=== PATIENT | female | born 1960 | race Caucasian/White ===

== ENCOUNTER → 2016-10-13 | Outpatient (CLI) | payer MEDICARE, BC | LOC: LAB.O 14:54 | PROVIDERS: ATTEND Nurse Practitioner Family | DX: D64.9 Anemia, unspecified (principal); E63.9 Nutritional deficiency, unspecified; E03.9 Hypothyroidism, unspecified; E21.5 Disorder of parathyroid gland, unspecified ==

== ENCOUNTER 2017-01-03 14:01 | Emergency (ER) | payer MEDICARE, BC ==
[2017-01-03 14:26] VITALS: TEMP 98.7
[2017-01-03] MEDS ORDERED: KETOROLAC TROMETHAMINE INJ 30 MG/ML VIAL IV ONE (14:39)
[2017-01-03] MEDS ORDERED: ONDANSETRON INJ 4 MG/2 ML VIAL IV ONE (14:39)
[2017-01-03] MEDS ORDERED: SODIUM CHLORIDE 0.9% 1000ML 1,000 ML IVS ONE (14:39)
--- NOTE | 2017-01-03 14:42 | ED.PDOC ---
History of Present Illness - General Chief Complaint: Problem Stated Complaint: right flank pain, difficulty urinating Time Seen by Provider: 01/03/17 14:15 Source: patient, RN notes reviewed, Vital Signs reviewed Exam Limitations: no limitations - History of Present Illness Initial Comments: Patient reports R sided kidney stone that started ~ 1 week ago and has progressively worsened. + R flank and RLQ pain. Feels same as prior kidney stones. + nausea, no fever/chills Timing/Duration: week - 1 Quality: severe, aching, stabbing Onset Location: right flank Radiation: RLQ Activites at Onset: none Prior abdominal problems: similar symptoms Sexual intercourse history: single partner Improving Factors: nothing Worsening Factors: nothing Associated Symptoms: abdominal pain, nausea/vomiting Allergies/Adverse Reactions: Allergies NO KNOWN ALLERGY Allergy (Verified 01/03/17 14:26) Home Medications: Ambulatory Orders Acetaminophen W/ Codeine [Tylenol/Codeine #4] 1 tab PO BID 12/21/13 Febuxostat [Uloric] 40 mg PO AM 12/21/13 Metoclopramide HCl 10 mg PO PRN PRN 12/21/13 Metoprolol Succinate [Metoprolol Succinate ER] 50 mg PO HS 12/21/13 Omeprazole 40 mg PO HS 12/21/13 Sertraline HCl [Zoloft] 100 mg PO AM 12/21/13 Sucralfate Tab [Carafate] 1 gm PO PRN PRN 12/21/13 fentaNYL PATCH 25 MCG/HR [Duragesic] 25 mcg TD PRN 12/21/13 tiZANidine [Zanaflex] 4 mg PO HS 12/21/13 Cyclobenzaprine HCl [Flexeril] 10 mg PO Q6HR PRN #20 tab 02/23/15 Review of Systems - Review of Systems Constitutional: States: no symptoms reported. Denies: chills, fever, malaise Respiratory: States: no symptoms reported Cardiology: States: no symptoms reported Gastrointestinal/Abdominal: States: see HPI, abdominal pain, nausea. Denies: vomiting Genitourinary: States: see HPI, pain Musculoskeletal: States: back pain - Right flank Skin: States: no symptoms reported Neurological: States: no symptoms reported Endocrine: States: no symptoms reported Hematologic/Lymphatic: States: no symptoms reported Past Medical History (General) - Patient Medical History Hx Stroke: No Hx Congestive Heart Failure: No Hx Pacemaker: - Had diabetes prior to gastric bypass, no longer on med Hx Hypertension: Yes Hx Diabetes: No Hx MRSA: Yes MRSA Source:: Blood Surgical History: cholecystectomy - Vaccination History Hx Influenza Vaccination: Yes Hx Pneumococcal Vaccination: Yes - Social History Hx Tobacco Use: Yes Hx Alcohol Use: No Hx Substance Use: No Hx Substance Use Treatment: No Hx Depression: No - Activities of Daily Living Hospice Agency (if applicable):: None - Female History Patient is a Female of Child Bearing Age (10 -59 yrs old): No Patient : No Family Medical History - Family History Father Living Status: Hx Family Hypertension: Yes Hx Family Diabetes: Yes Physical Exam - Physical Exam General Appearance: Agitated, No apparent distress, Ill Appearing, Well Developed, Well Groomed, Well Nourished Eyes, Ears, Nose, Throat Exam: other - Dry mucous membranes Neck: non-tender, full range of motion, supple, normal inspection Cardiovascular/Respiratory: regular rate, rhythm, no M/R/G, no JVD, normal breath sounds, no respiratory distress Gastrointestinal/Abdominal: normal bowel sounds, soft, tenderness - RUQ & RLQ Back Exam: CVA tenderness (R) Extremity: normal range of motion, non-tender, normal inspection Neurologic: no motor/sensory deficits, alert, normal mood/affect, oriented x 3 Skin Exam: normal color, warm/dry Lymphatic: no adenopathy Comments: Vital Signs - 24 hr 01/03/17 14:10 Temperature 98.7 F Pulse Rate [ 74 pulse ox] Respiratory 20 Rate Blood Pressure 127/79 [Left Arm] O2 Sat by Pulse 98 Oximetry Progress - Progress Progress: 01/03/17 16:18 Discussed normal/unchanged results with patient. She is feeling better. Will d/c home. - Results/Orders Results/Orders: Laboratory Tests 01/03/17 01/03/17 14:30 15:25 WBC 6.6 RBC 4.13 L Hgb 11.4 L Hct 35.0 L MCV 84.8 MCH 27.6 MCHC 32.6 L RDW 13.7 Plt Count 244 MPV 8.0 Absolute Neuts (auto) 3.80 Absolute Lymphs (auto) 2.10 Absolute Monos (auto) 0.30 Absolute Eos (auto) 0.30 Absolute Basos (auto) 0.10 Neutrophils % 57.8 Lymphocytes % 32.0 Monocytes % 5.0 Eosinophils % 4.3 Basophils % 0.9 Sodium 138 Potassium 5.3 H Chloride 106 Carbon Dioxide 25 Anion Gap 12.3 BUN 35 H Creatinine 3.18 H BUN/Creatinine Ratio 11.0 Random Glucose 142 H Serum Osmolality 286.1 Calcium 8.9 Total Bilirubin 0.3 AST 21 ALT 10 Alkaline Phosphatase 63 Serum Total Protein 7.3 Albumin 3.7 Globulin 3.6 H Albumin/Globulin Ratio 1.0 L Urine Color Yellow Urine Appearance Cloudy Urine pH 8.5 H Ur Specific [place] 1.020 Urine Protein 100 H Urine Glucose (UA) Negative Urine Ketones Negative Urine Blood Negative Urine Nitrite Negative Urine Bilirubin Negative Urine Urobilinogen 0.2 Ur Leukocyte Esterase Negative Urine RBC 0-1 Urine WBC 0-1 Ur Epithelial Cells 10-20 Amorphous Sediment 1+ Urine Bacteria 0 Elevated BUN/Cr - unchanged from prior. - EKG/XRAY/CT CT Ordered: Yes - Abd/Pelvis: no kidnee stone, nl kidney, o/w nl Departure - Departure Clinical Impression: Renal colic on right side Time of Disposition: 16:19 Disposition: Discharge to Home or Self Care Condition: Good Departure Forms: ED Discharge - Pt. Copy, Patient Portal Self Enrollment Instructions: DI for Kidney Stones Diet: resume usual diet Activity: increase activity as tolerated Home Medications: Ambulatory Orders Acetaminophen W/ Codeine [Tylenol/Codeine #4] 1 tab PO BID 12/21/13 Febuxostat [Uloric] 40 mg PO AM 12/21/13 Metoclopramide HCl 10 mg PO PRN PRN 12/21/13 Metoprolol Succinate [Metoprolol Succinate ER] 50 mg PO HS 12/21/13 Omeprazole 40 mg PO HS 12/21/13 Sertraline HCl [Zoloft] 100 mg PO AM 12/21/13 Sucralfate Tab [Carafate] 1 gm PO PRN PRN 12/21/13 fentaNYL PATCH 25 MCG/HR [Duragesic] 25 mcg TD PRN 12/21/13 tiZANidine [Zanaflex] 4 mg PO HS 12/21/13 Cyclobenzaprine HCl [Flexeril] 10 mg PO Q6HR PRN #20 tab 02/23/15
--- NOTE | 2017-01-03 15:19 | CT ---
EXAM DESCRIPTION: CT Abdomen/Pelvis w/o Contrast CLINICAL HISTORY: R flank pain COMPARISON: 04/22/2015 TECHNIQUE: CT of the abdomen and pelvis was performed without contrast. Multiple axial images and multiplanar reconstructions were generated. FINDINGS: Lung bases: The visualized lung bases are clear. Solid organs: There is no hydronephrosis, hydroureter, or nephrolithiasis. Bilateral renal cortical scarring is present. Cholecystectomy clips are present. The liver, spleen, pancreas, and adrenal glands are unremarkable on this noncontrast exam. Gastrointestinal: Operative changes of the stomach are demonstrated. The small intestine is unremarkable. Scattered colonic diverticulosis is present without CT evidence for diverticulitis. The appendix is normal. No free fluid or free air. Vascular: Moderate calcific plaque in the abdominal aorta and its major branches. Lymph nodes: No pathologically enlarged lymph nodes are present by CT size criteria. Musculoskeletal and soft tissues: No destructive osseous lesions are present. Mild multilevel degenerative changes in the lumbar spine. Urinary bladder and pelvic organs: The urinary bladder is normal. The uterus is surgically absent. IMPRESSION: 1. No obstructive uropathy. No acute abdominal or pelvic noncontrast CT findings. 2. Colonic diverticulosis without CT evidence for diverticulitis. 3. Atherosclerosis. Electronically signed by: Duncan Mock MD 01/03/2017 3:17 PM CDT
[2017-01-03 16:39] VITALS: BP 197/97; O2SAT 94
== END 2017-01-03 16:39 | disposition home or self-care (01) ==
LOC: ER 14:01
DX: N23 Unspecified renal colic (principal); I10 Essential (primary) hypertension; Z87.442 Personal history of urinary calculi; Z79.899 Other long term (current) drug therapy; Z86.14 Personal history of Methicillin resistant Staphylococcus aureus infection; Z98.84 Bariatric surgery status
CPT/HCPCS: 36415; 74176; 80053; 81001; 85025; J1885; J2405; J7030

== ENCOUNTER → 2017-02-18 | Outpatient (CLI) | payer MEDICARE, BC | LOC: LAB.O 10:53 | PROVIDERS: ATTEND Psychiatry & Neurology Neurology | DX: M45.9 Ankylosing spondylitis of unspecified sites in spine (principal); M06.9 Rheumatoid arthritis, unspecified; M32.10 Systemic lupus erythematosus, organ or system involvement unspecified; M71.50 Other bursitis, not elsewhere classified, unspecified site; M31.6 Other giant cell arteritis; R53.83 Other fatigue; M51.16 Intervertebral disc disorders with radiculopathy, lumbar region; M35.3 Polymyalgia rheumatica; G47.9 Sleep disorder, unspecified; E53.8 Deficiency of other specified B group vitamins; E55.9 Vitamin D deficiency, unspecified ==

== ENCOUNTER → 2017-03-14 | Outpatient (CLI) | payer MEDICARE, BC ==
--- NOTE | 2017-03-14 13:52 | MRI ---
EXAM DESCRIPTION: Cervical Spine CLINICAL HISTORY: CERVICAL DISC DISORDER COMPARISON: None Available. TECHNIQUE: MRI of the cervical spine is performed according to our usual protocol. FINDINGS: There is good alignment of the cervical spine. Vertebral body stature is maintained. Craniocervical junction and the cervical spinal cord are unremarkable. C2-3: There is mild left neuroforaminal narrowing from facet and uncovertebral joint hypertrophy. The right neuroforamen and spinal canal are unremarkable. C3-4: Moderate left neuroforaminal narrowing. The right neuroforamen and spinal canal are unremarkable. C4-5: Mild bilateral neuroforaminal narrowing. Focal posterior disc protrusion. The midline diameter of the spinal canal is adequate at 11 mm. There is effacement of the ventral CSF space, but no definitive cord contact. C5-6: Broad-based posterior disc protrusion resulting in subtle cord contact anteriorly. The midline diameter of the spinal canal is narrowed to 9 mm. Bilateral neuroforamen are unremarkable. C6-7: Focal posterior disc protrusion with cord contact. The midline diameter spinal canal is narrowed at 9 mm. Bilateral neuroforamen are likely adequate. C7-T1: Unremarkable. IMPRESSION: 1. Today's exam demonstrates multilevel degenerative change with mild spinal canal narrowing at C5-6 and C6-7. The AP diameter of the spinal canal at these levels is 9 mm. Additionally, at both levels there is subtle cord contact without myelomalacia. Electronically signed by: Duncan Delgado MD 03/14/2017 1:51 PM CDT
--- NOTE | 2017-03-14 13:54 | MRI ---
EXAM DESCRIPTION: Lumbar Spine w/o Contrast CLINICAL HISTORY: RADICULOPATHY LUMBAR REGION COMPARISON: None Available. TECHNIQUE: MRI of the lumbar spine is performed according to our usual protocol with axial and sagittal multi sequence imaging. FINDINGS: Normal alignment of the lumbar spine is noted. There is no acute fracture or destructive osseous lesion. The conus medullaris terminates normally. L1-2: Mild disc desiccation, but no spinal canal or neuroforaminal narrowing. L2-3: Unremarkable. L3-4: Mild facet degeneration. No disc disease. No spinal canal or neuroforaminal narrowing. L4-5: Moderate facet degeneration and ligamentum flavum thickening. There is subtle grade 1 anterior listhesis noted. Ligamentum flavum buckling and a mild circumferential disc bulge noted. The midline diameter spinal canal is adequate at 11 mm. There is mild bilateral neuroforaminal narrowing. L5-S1: Mild facet degeneration bilaterally. No disc pathology. No spinal canal or neuroforaminal narrowing. IMPRESSION: 1. There is mild degenerative change most pronounced at L4-5. At this level there is moderate facet degeneration which has resulted in subtle grade 1 anterior listhesis of L4 and L5. There is only mild bilateral neuroforaminal narrowing at this level. 2. No spinal canal narrowing at any level. Electronically signed by: Duncan Delgado MD 03/14/2017 1:54 PM CDT
== END | disposition home or self-care (01) ==
LOC: MRI 09:45
PROVIDERS: ATTEND Psychiatry & Neurology Neurology
DX: M50.122 Cervical disc disorder at C5-C6 level with radiculopathy (principal); M51.16 Intervertebral disc disorders with radiculopathy, lumbar region

== ENCOUNTER → 2017-03-18 | Outpatient (CLI) | payer MEDICARE, BC | LOC: GMAJ 12:50 | PROVIDERS: ATTEND Family Medicine | DX: E03.9 Hypothyroidism, unspecified (principal); R41.82 Altered mental status, unspecified; D64.9 Anemia, unspecified; F03.90 Unspecified dementia, unspecified severity, without behavioral disturbance, psychotic disturbance, mood disturbance, and anxiety ==

== ENCOUNTER → 2017-04-14 | Outpatient (CLI) | payer MEDICARE, BC | END | disposition home or self-care (01) | LOC: GMAJ 14:08 | PROVIDERS: ATTEND Family Medicine | DX: N18.4 Chronic kidney disease, stage 4 (severe) (principal) ==

== ENCOUNTER 2017-04-23 15:03 | Inpatient (IN) | payer MEDICARE, BC ==
--- NOTE | 2017-04-23 15:15 | ED.PDOC ---
History of Present Illness - General Chief Complaint: Unresponsive Stated Complaint: Altered mental status Time Seen by Provider: 04/23/17 15:14 Source: RN notes reviewed, EMS notes reviewed - History of Present Illness Initial Comments: Fina Gillespie 56 y/o female brought by ems after she was found unresponsive while seating on the side of the pool today according to her son.The son stated that he called his mom to get her things ready going home but she was not answering and her son tried to arouse her and she had been talking nonsense and while she was about to be carried by the son she was found to be limp and weak unable to balance herself .Initially son told her that she needs ambulance to go to hospital but declined but she was still feeling weak she decided to be brought to er by ambulance. On her arrival at the [facility] er she was talking to EMS personnel,remembers incident no dysarthria,no focal neurologic deficit.She has history of chronic renal failure,HTN,chronic back pain.She is more responsive on arrival at [facility]-er. Timing/Duration: 1-3 hours Severity: moderate Improving Factors: nothing Worsening Factors: nothing Associated Symptoms: denies symptoms Allergies/Adverse Reactions: Allergies NO KNOWN ALLERGY Allergy (Verified 01/03/17 14:26) Home Medications: Ambulatory Orders Acetaminophen W/ Codeine [Tylenol/Codeine #4] 1 tab PO BID 12/21/13 Febuxostat [Uloric] 40 mg PO AM 12/21/13 Metoclopramide HCl 10 mg PO PRN PRN 12/21/13 Metoprolol Succinate [Metoprolol Succinate ER] 50 mg PO HS 12/21/13 Omeprazole 40 mg PO HS 12/21/13 Sertraline HCl [Zoloft] 100 mg PO AM 12/21/13 Sucralfate Tab [Carafate] 1 gm PO PRN PRN 12/21/13 fentaNYL PATCH 25 MCG/HR [Duragesic] 25 mcg TD PRN 12/21/13 tiZANidine [Zanaflex] 4 mg PO HS 12/21/13 Cyclobenzaprine HCl [Flexeril] 10 mg PO Q6HR PRN #20 tab 02/23/15 Review of Systems - Review of Systems Constitutional: States: no symptoms reported, malaise EENTM: States: no symptoms reported Respiratory: States: no symptoms reported Cardiology: States: no symptoms reported Gastrointestinal/Abdominal: States: no symptoms reported Genitourinary: States: other - chronic kidney disease -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 Finn Musculoskeletal: States: back pain - chronic Neurological: States: no symptoms reported Endocrine: States: no symptoms reported Hematologic/Lymphatic: States: anemia - from ckd Past Medical History (General) - Patient Medical History Hx Stroke: No Hx Congestive Heart Failure: No Hx Pacemaker: - Had diabetes prior to gastric bypass, no longer on med Hx Hypertension: Yes Hx Diabetes: No Hx Renal Disease: Yes - chronic kidney disease Hx MRSA: Yes Hx Other PMH: Yes - hospitalized for sepsis MRSA Source:: Blood Surgical History: gastric bypass, other - btl,hysterectomy,hernia repair ,toes left foot - Vaccination History Hx Influenza Vaccination: Yes Hx Pneumococcal Vaccination: Yes - Social History Hx Tobacco Use: Yes Hx Alcohol Use: No Hx Substance Use: No Hx Substance Use Treatment: No Hx Depression: No - Activities of Daily Living Patient Lives Alone: No - family - Female History Patient is a Female of Child Bearing Age (10 -59 yrs old): No Patient : No Family Medical History - Family History Father Living Status: Hx Family Hypertension: Yes Hx Family Diabetes: Yes Physical Exam - Physical Exam General Appearance: Alert, Comfortable, No apparent distress Eye Exam: bilateral normal Ears, Nose, Throat: hearing grossly normal, normal ENT inspection, normal pharynx Neck: non-tender, full range of motion, supple, normal inspection Respiratory: chest non-tender, lungs clear, normal breath sounds, no respiratory distress Cardiovascular/Chest: normal peripheral pulses, regular rate, rhythm, no edema, no gallop, no murmur Peripheral Pulses: radial,right: 1+, radial,left: 1+ Gastrointestinal/Abdominal: normal bowel sounds, non tender, soft, no organomegaly, no pulsatile mass Back Exam: normal inspection, no CVA tenderness, no vertebral tenderness Extremity: normal range of motion, non-tender, normal inspection Neurologic: no motor/sensory deficits, alert, oriented x 3 Skin Exam: normal color, warm/dry Lymphatic: no adenopathy Progress - Progress Progress: 04/23/17 16:35 Vital Signs - 8 hr 04/23/17 15:05 Temperature 101.5 F H Pulse Rate [ 54 L left brachial] Respiratory 20 Rate Blood Pressure 146/81 [left brachial] O2 Sat by Pulse 94 L Oximetry 04/23/17 17:19 unable to take Kayexelate makes her throw up - Results/Orders Results/Orders: 04/23/17 15:16 URINE DRUG SCREEN, 7 ASSAY Stat URINALYSIS Stat 04/23/17 15:30 EKG STAT 04/23/17 16:12 Sodium Chloride 0.9% 1000ML [Ns 1000 ml] 1,000 ml IVS ONCE Laboratory Results - last 24 hr 04/23/17 04/23/17 04/23/17 15:00 15:00 15:33 WBC 9.0 RBC 3.65 L Hgb 9.9 L Hct 30.8 L MCV 84.3 MCH 27.1 MCHC 32.2 L RDW 14.3 Plt Count 292 MPV 8.5 Absolute Neuts (auto) 5.90 Absolute Lymphs (auto) 2.30 Absolute Monos (auto) 0.40 Absolute Eos (auto) 0.30 Absolute Basos (auto) 0.10 Neutrophils % 65.1 Lymphocytes % 26.0 Monocytes % 4.4 Eosinophils % 3.7 Basophils % 0.8 Sodium 138 Potassium 6.2 H Chloride 107 Carbon Dioxide 19 L Anion Gap 18.2 H BUN 44 H Creatinine 3.53 H BUN/Creatinine Ratio 12.5 Random Glucose 146 H Serum Osmolality 289.5 Lactic Acid Calcium 7.7 L Total Bilirubin 0.3 AST 17 ALT 10 Alkaline Phosphatase 91 Creatine Kinase 81 CK-MB (CK-2) 3.0 CK-MB (CK-2) % Not Reportable Troponin I < 0.02 Serum Total Protein 6.8 Albumin 3.1 L Globulin 3.7 H Albumin/Globulin Ratio 0.8 L Ethyl Alcohol < 5.40 04/23/17 15:33 WBC RBC Hgb Hct MCV MCH MCHC RDW Plt Count MPV Absolute Neuts (auto) Absolute Lymphs (auto) Absolute Monos (auto) Absolute Eos (auto) Absolute Basos (auto) Neutrophils % Lymphocytes % Monocytes % Eosinophils % Basophils % Sodium Potassium Chloride Carbon Dioxide Anion Gap BUN Creatinine BUN/Creatinine Ratio Random Glucose Serum Osmolality Lactic Acid 1.5 Calcium Total Bilirubin AST ALT Alkaline Phosphatase Creatine Kinase CK-MB (CK-2) CK-MB (CK-2) % Troponin I Serum Total Protein Albumin Globulin Albumin/Globulin Ratio Ethyl Alcohol - EKG/XRAY/CT EKG: Sinus, nonspecific ST T wave Chg Comments: Heart rate-53 XRAY: chest - no acute abnormality CT Ordered: Yes - no acute intracranial abnormality Departure - Departure Clinical Impression: Hyperkalemia, diminished renal excretion, Chronic kidney disease (CKD) stage G4 /A1, severely decreased glomerular filtration rate (GFR) between 15-29 mL/min/ 1.73 square meter and albuminuria creatinine ratio less than 30 mg/g, Altered awareness, transient Time of Disposition: 17:20 - D/W Juan Garcia ANP-hospitalist for admit Disposition: Admit Patient Condition: Fair Referrals: Jose M Wilson MD [Primary Care Provider] - 1-2 Weeks Home Medications: Ambulatory Orders Acetaminophen W/ Codeine [Tylenol/Codeine #4] 1 tab PO BID 12/21/13 Febuxostat [Uloric] 40 mg PO AM 12/21/13 Metoclopramide HCl 10 mg PO PRN PRN 12/21/13 Metoprolol Succinate [Metoprolol Succinate ER] 50 mg PO HS 12/21/13 Omeprazole 40 mg PO HS 12/21/13 Sertraline HCl [Zoloft] 100 mg PO AM 12/21/13 Sucralfate Tab [Carafate] 1 gm PO PRN PRN 12/21/13 fentaNYL PATCH 25 MCG/HR [Duragesic] 25 mcg TD PRN 12/21/13 tiZANidine [Zanaflex] 4 mg PO HS 12/21/13 Cyclobenzaprine HCl [Flexeril] 10 mg PO Q6HR PRN #20 tab 02/23/15
[2017-04-23] MEDS ORDERED: INSULIN, REG.(HUMAN) 100 U/ML VIAL IV ONE (15:50)
[2017-04-23] MEDS ORDERED: CALCIUM GLUCONATE INJ 2 GM in SODIUM CHLORIDE 0.9% 100ML 100 ML IVPB ONE (15:50)
[2017-04-23] MEDS ORDERED: DEXTROSE 50% 25 GM/50 ML SYG IV ONE (15:50)
[2017-04-23] MEDS ORDERED: SODIUM BICARBONATE SYRINGE 50 MEQ/50 ML SYG IV ONE ×2 (15:52→19:28)
[2017-04-23] MEDS ORDERED: SOD POLYSTYRENE SULFONATE 15 GM/60 ML BTTL PO ONE (15:54)
[2017-04-23] MEDS ORDERED: CALCIUM GLUCONATE INJ 1 GM/10 ML VIAL ONE ×2 (16:02→16:05)
[2017-04-23] MEDS ORDERED: SODIUM CHLORIDE 0.9% 100ML 0 ML IVPB ONE (16:03)
[2017-04-23] MEDS ORDERED: SODIUM CHLORIDE 0.9% 100ML 100 ML IVPB ONE (16:05)
--- NOTE | 2017-04-23 16:09 | CT ---
PROCEDURE: Head CLINICAL HISTORY: 56 years Female ams COMPARISON: 07/31/2011. TECHNIQUE: Contiguous axial images obtained through the brain without IV contrast. This exam was performed according to our department optimization program which includes automated exposure control, adjustment of the mA and/or kv according to patient size and/or use of iterative reconstruction technique. FINDINGS: The ventricles and sulci are prominent consistent with atrophic changes. Microvascular ischemic changes. No midline shift or mass effect. No mass lesions. No acute hemorrhage. Atherosclerotic calcifications. No fluid or significant mucosal thickening in the visualized paranasal sinuses. Mucous retention cyst or polyp in the maxillary sinus on the right. Small area of diminished attenuation in the left pio likely intervertebral to chronic small vessel disease. No depressed calvarial fractures. IMPRESSION: No acute intracranial abnormality is identified. Early infarcts are not always visualized with CT. If there is clinical concern for the possibility of acute ischemic change, MRI could be obtained to better evaluate. Generalized atrophy with microvascular ischemic changes. Electronically signed by: Alanis Ozuna 04/23/2017 4:07 PM CDT
[2017-04-23] MEDS ORDERED: SODIUM CHLORIDE 0.9% 1000ML 1,000 ML IVS ONE (16:12)
--- NOTE | 2017-04-23 16:12 | RAD ---
EXAM DESCRIPTION: Chest,1 View CLINICAL HISTORY: 56 years Female fever COMPARISON: December 21, 2013. FINDINGS: The cardiomediastinal silhouette appears unremarkable. No consolidating infiltrates or pleural effusions. No pneumothorax. Small nodular area adjacent to the left heart border which was present on the patient's previous study. IMPRESSION: No acute abnormality is identified. Electronically signed by: Alanis Ozuna 04/23/2017 4:11 PM CDT
--- NOTE | 2017-04-23 17:53 | HP ---
SUPERVISING PHYSICIAN: Raji Irwin M.D. CHIEF COMPLAINT: Altered mental status. HISTORY OF PRESENT ILLNESS: Ms. Gillespie is a 56 year-old female patient that was brought to the Emergency Department by EMS after she was found unresponsive while she was sitting at the pool side at her son's home. The son noted that he told his mom to get her things ready to go, but she would not answer and when her son tried to arouse her, she was talking nonsense and was found to be limp and weak, and unable to balance herself. She presented to the Emergency Room and at time of presentation was talking to EMS personnel and has full recall of events, and showed no focal neurological deficits. She does have a history of chronic renal failure. Vital signs on arrival show that she has had a temperature of 101.1 with blood pressure of 146/81, respirations 20. She is satting 94% on room air. Laboratory studies were completed and showed that she had a normal white count of 9.0. She was anemic with a 9.9 hemoglobin and 30.8 hematocrit. Differential was within normal limits. Chemistries showed hyperkalemia with potassium 6.2, anion gap was 18.2 with carbon dioxide of 19. BUN 44, creatinine 3.53, glucose 146, calcium 7.7. Liver functions showed to be within normal limits. Troponin was less than 0.02, CPK was normal at 81. She was then given calcium gluconate insulin and sodium bicarbonate for treatment of hyperkalemia. Initially she was going to be given Kayexalate, however the patient refused as she notes that she always has nausea and vomiting with Kayexalate administration. Dr. Yun requested the patient be admitted overnight for further treatment and monitoring for the hyperkalemia and worsening renal failure. The patient was admitted to the Medical/Surgical floor in stable condition. PAST MEDICAL HISTORY: 1. Hypertension. 2. Diverticulosis. 3. Gastroesophageal reflux disease. 4. Peptic ulcer disease. 5. Chronic renal failure stage IV. 6. Osteopenia. 7. Peripheral central neuropathies. 8. Iron deficiency anemia. PAST SURGICAL HISTORY: 1. Hernia repair in 1992. 2. Hysterectomy in 1991. 3. Toe amputation. 4. Cholecystectomy in 1997. 5. Tonsillectomy and adenoidectomy. 6. Bladder suspension. 7. Cataract removal on the right. 8. Previous surgical debridement of a wound on the foot. 9. Gastric bypass. HOME MEDICATIONS: 1. Lopressor 100 mg 1 twice daily. 2. Vitamin B2 50,000 units capsules weekly times 8 weeks and then daily after that. 3. Clonidine 0.1 mg b.i.d. 4. Zoloft 100 mg b.i.d. 5. Buspirone 15 mg tablets twice daily. 6. Sodium bicarbonate 325 mg 4 tablets twice daily. 7. Omeprazole extended release 40 mg one daily. 8. Gabapentin 300 mg tablets one 3 times a day. 9. Citracal maximum Vitamin D tablet 1 daily. 10. Robaxin 500 mg tablet one 3 times a day. 11. Tylenol with codeine #4, one b.i.d. 12. Fentanyl 25 mcg transdermal patch every 72 hours. FAMILY HISTORY: Father at age 76 secondary to diabetes and congestive heart failure. Mother from type 2 diabetes and hypertension. She has a sister that has diabetes, hypertension and congestive heart failure, and 2 sons that have hypertension. SOCIAL HISTORY: The patient is . She lives in [place]. She denies ever smoking but does note that she smokes as a social smoker when she is drinking, which is very infrequent. She does drink alcohol infrequently. Denies any illicit drug use. REVIEW OF SYSTEMS: CONSTITUTIONAL: Denies any previous fever or chills, but does not she has had some general malaise. HEENT: Notes that her right ear hurts and she has been seen previously by Dr. Finn and diagnosed with vertigo, and currently on [id number] treatment with Meclizine. RESPIRATORY: Denies any cough, congestion, shortness of breath. CARDIOVASCULAR: Denies any chest pains, palpitations or any previous syncopal episodes. GASTROINTESTINAL: Denies any constipation but notes that she has had some nausea since admission, but prior to admission was not reporting any nausea. She has had no diarrhea. GENITOURINARY: Denies any dysuria. Does have a history of chronic kidney disease and is followed by Dr. Finn. MUSCULOSKELETAL: Chronic back pain for which she takes Fentanyl for. NEUROLOGIC: As notes in the History of Present Illness, initially acute mental status change, but prior to this event denied any neurological changes other than some dizziness as noted with the vertigo. ENDOCRINE: Noted that she has had a history of diabetes in the past but no longer has a problem with it since she has had a gastric bypass. PHYSICAL EXAMINATION: VITAL SIGNS: Initial temperature in the Emergency Room was 101.5 with blood pressure 146/81, respirations 20, satting 94% on room air. On admission to the Medical/Surgical floor, temperature was 98.7, pulse 85, blood pressure 201/106 with respirations 20, satting 96% on room air. Admission weight was 75.2 kg. HEENT: Tympanic membranes are clear bilaterally. Oropharynx was pink. Mucosal membranes were notably dry with no lesions. NECK: Supple, non-tender with full range of motion. There was no jugular venous distention. CHEST: Lungs were clear to auscultation bilaterally without any notable rhonchi , wheezing or rales. CARDIOVASCULAR: Regular rate and rhythm without appreciable murmurs, gallops, or rubs. ABDOMEN: Soft, non-tender. Positive bowel sounds. EXTREMITIES: No clubbing, cyanosis or edema. INTEGUMENT: It is notable that she has a significant amount of dry skin. She has multiple areas of sunburn on her shoulders and her knees apparently from being at the pool for multiple hours today, but no rashes or lesions are noted. NEUROLOGIC: On admission to the Medical/Surgical floor, she was alert and oriented times three with a GCS of 15. Facial features were symmetrical. Extraocular movements are within normal limits. There was no notable nystagmus. There was no notable localizing or focalizing neuromotor deficits. LABORATORY: CBC on admission showed a white count of 9 with hemoglobin 9.9, hematocrit 30.8, platelet count 292,000. Differential showed to be within normal limits. Chemistries showed hyperkalemia with potassium 6.2, sodium 138, chloride 107, carbon dioxide 19, anion gap 18.2, BUN 44, creatinine 3.53, glucose 146. Serum osmolality 289. Lactic acid 1.5, calcium 7.7 corrected for an albumin of 3.1 was 8.4. Liver functions all showed to be within normal limits. Troponin was less than 0.02, CPK was normal at 81. Urinalysis showed 100 protein, 100 glucose, negative ketones but positive for trace amount of blood and leukocyte esterase. Microscopic revealed 0 to 1 RBCs, 10 to 20 WBCs with 3 to 5 epithelials with 1+ bacteria. Toxicology urine drug screen that was negative for all substances tested. Alcohol level was less than 5.40. MICROBIOLOGY: MRSA surveillance culture is pending. Urine culture pending. RADIOLOGY: Chest x-ray in the Emergency Department prior to admission showed no acute abnormalities identified. She also had a CT of the head without contrast and per radiology interpretation there were no acute intracranial abnormalities identified. There was note of generalized atrophy with microvascular ischemic changes. EKG 12-lead showed sinus rhythm with nonspecific ST wave changes. No obvious T wave tenting. Heart rate was 53. ASSESSMENT: 1. Metabolic acidosis as noted with an elevated anion gap, low CO2 in a patient with chronic kidney disease, unknown etiology, possibly secondary to underlying urinary tract infection versus environmental exposure with some heat exhaustion. 2. Altered mental status likely secondary to metabolic acidosis. 3. Hyperkalemia in a patient with chronic renal failure felt to be exacerbated by dehydration and metabolic acidosis. 4. Acute on chronic renal failure with a baseline creatinine of around 3.1 showing worsening function secondary to metabolic acidosis as noted in number 1. 5. Dehydration secondary to poor oral intake and extreme environmental exposure with an elevated body temperature on admission. 6. Febrile illness felt to be secondary to environmental exposure with heat exhaustion and heat exposure with concern for possible early development of ongoing infection as noted with a urinary tract infection on admission. 7. Acute urinary tract infection, cystitis with cultures pending. 8. Hypertension poorly controlled. 9. Gastroesophageal reflux disease on proton pump inhibitor. 10. Peptic ulcer disease. 11. Iron deficiency anemia secondary to chronic kidney disease. 12. History of diverticulosis. PLAN: The patient is admitted to the Medical/Surgical floor from the E. for further treatment and evaluation of her metabolic acidosis and hyperkalemia. She was given calcium gluconate, sodium bicarb and insulin in the Emergency Department. I will plan to repeat a BMP and start her on a bicarb drip accordingly with D5W with 75 mEq of sodium bicarb to run at 110 an hour tonight and reevaluate with laboratory studies in the morning. She will be started on a sliding scale a.c. and h.s. She will be on telemetry for close cardiac monitoring. Will give her Zofran for nausea. Will do every 4 hours neuro checks given that she had an altered mental status prior to admission. Will start on DVT prophylaxis as per protocol. Will anticipate length of stay to be 2 to 3 days with close monitoring and repeat laboratory studies. Depending on her response to treatment, we may need to touch base with Dr. Finn tomorrow. Until discharge, will continue to monitor and treat appropriately. Will also plan to treat her hypertension with additional Clonidine as needed and if additional assistance is needed to further lower her blood pressure, will consider using Labetalol. #[id number] [facility]
[2017-04-23] MEDS ORDERED: cloNIDine HCL 0.1 MG TAB PO ONE ×2 (18:20→22:04)
[2017-04-23] MEDS ORDERED: ALUM & MAG HYDROX-SIMETHICONE 30 ML UD PO PRN (18:29)
[2017-04-23] MEDS ORDERED: MAGNESIUM HYDROXIDE 30 ML UD PO PRN (18:29)
[2017-04-23] MEDS: IV SET AND CAP CHANGE INJ INJ SCH (18:38)
[2017-04-23] MEDS ORDERED: GLUCAGON INJ 1 MG VIAL SUBCU PRN (19:16)
[2017-04-23] MEDS ORDERED: DEXTROSE 5% 1000ML 1,000 ML IVS ONE (19:28)
[2017-04-23] MEDS ORDERED: SODIUM CHL 0.9% 50ML MIN-BAG+ 50 ML IVPB ONE (19:29)
[2017-04-23] MEDS ORDERED: cefTRIAXone SODIUM 1 GM VIAL ONE (19:29)
[2017-04-23] MEDS: cefTRIAXone SODIUM 1 GM in SODIUM CHL 0.9% 50ML MIN-BAG+ 50 ML IVPB SCH (19:42)
[2017-04-23] MEDS: ONDANSETRON INJ 4 MG/2 ML VIAL IV PRN (19:47)
[2017-04-23] MEDS: SODIUM CHLORIDE 0.9% (FLUSH) 10 ML SYG IV PRN (19:47)
[2017-04-23] MEDS ORDERED: METHOCARBAMOL 750 MG TAB PO PRN (19:48)
[2017-04-23] MEDS ORDERED: LABETALOL INJ 5 MG/ML VIAL IV ONE (20:03)
[2017-04-23] MEDS ORDERED: METOPROLOL TARTRATE 50 MG TAB ONE (20:26)
[2017-04-23] MEDS ORDERED: busPIRone HCL 5 MG TAB ONE (20:26)
[2017-04-23] MEDS: GABAPENTIN 300 MG CAP PO SCH (20:29)
[2017-04-23] MEDS: cloNIDine HCL 0.1 MG TAB PO SCH (20:29)
[2017-04-23] MEDS: SODIUM BICARBONATE VIAL 75 MEQ in DEXTROSE 5% 1000ML 1,000 ML IVS PRN (20:31)
[2017-04-23] MEDS ORDERED: INSULIN LISPRO 100 UNITS/ML PEN SUBCU SCH (21:00)
[2017-04-23] MEDS ORDERED: BUSPIRONE HCL PO SCH (21:00)
[2017-04-23] MEDS ORDERED: SODIUM CHLORIDE 0.9% (FLUSH) 10 ML SYG IV SCH (21:00)
[2017-04-23] MEDS ORDERED: NON-FORMULARY MEDICATION 1 EA MIS (Metoprolol Tartrate [Lopressor] 100 MG) PO SCH (21:00)
[2017-04-24] MEDS ORDERED: INSULIN LISPRO 100 UNITS/ML PEN SUBCU SCH
[2017-04-24] MEDS: SODIUM CHLORIDE 0.9% (FLUSH) 10 ML SYG IV PRN ×2 (02:37→22:14)
[2017-04-24] MEDS: ONDANSETRON INJ 4 MG/2 ML VIAL IV PRN ×3 (02:37→22:14)
[2017-04-24] MEDS ORDERED: cloNIDine HCL 0.2 MG TAB PO ONE ×2 (03:10→23:21)
[2017-04-24] MEDS ORDERED: DEXTROSE 5% 1000ML 1,000 ML IVS ONE ×2 (05:15→16:06)
[2017-04-24] MEDS: SODIUM BICARBONATE VIAL 75 MEQ in DEXTROSE 5% 1000ML 1,000 ML IVS PRN (05:35)
[2017-04-24] MEDS ORDERED: LABETALOL INJ 5 MG/ML VIAL IV ONE ×2 (05:50→16:43)
[2017-04-24] MEDS ORDERED: METOPROLOL TARTRATE 50 MG TAB ONE (07:32)
[2017-04-24] MEDS ORDERED: busPIRone HCL 5 MG TAB ONE (07:32)
[2017-04-24] MEDS ORDERED: ACETAMINOPHEN 325 MG TAB PO PRN (07:56)
[2017-04-24] MEDS: INSULIN LISPRO 100 UNITS/ML PEN SUBCU SCH ×4 (08:03→21:06)
[2017-04-24] MEDS: GABAPENTIN 300 MG CAP PO SCH ×3 (08:07→21:10)
[2017-04-24] MEDS: CALCIUM CARBONATE-VITAMIN D 500 MG TAB PO SCH (08:07)
[2017-04-24] MEDS: busPIRone HCL 5 MG TAB PO SCH ×2 (08:08→21:09)
[2017-04-24] MEDS: cloNIDine HCL 0.1 MG TAB PO SCH ×2 (08:09→21:10)
[2017-04-24] MEDS: amLODIPine BESYLATE 5 MG TAB PO SCH (09:23)
--- NOTE | 2017-04-24 09:25 | PCM.CORE ---
Physician DVT/VTE - Nurse DVT Assessment & Total Each Risk Factor Represents 3 Points: Family Hx thrombosis Each Risk Factor Represents 2 Points: Age 60-74 Each Risk Factor Represents 1 Point: Medical PT at Bed Rest DVT Assessment Score: 6 - 5 or more Very High Risk Treatments: Early Ambulation *, Sequential Compression Device Pharmacological: Enoxaparin 40mg SQ Daily
[2017-04-24] MEDS ORDERED: ACETAMINOPHEN W/COD #3 TAB 1 EA TAB ONE (09:27)
[2017-04-24] MEDS ORDERED: SERTRALINE HCL 50 MG TAB ONE (09:27)
[2017-04-24] MEDS ORDERED: CODEINE PO SCH (09:30)
[2017-04-24] MEDS ORDERED: ACETAMINOPHEN PO SCH (09:30)
[2017-04-24] MEDS: ENOXAPARIN SODIUM 30 MG/0.3 ML SYG SUBCU SCH (09:37)
[2017-04-24] MEDS: ACETAMINOPHEN W/COD #3 TAB 1 EA TAB PO SCH ×2 (09:37→21:10)
[2017-04-24] MEDS: SERTRALINE HCL 50 MG TAB PO SCH ×2 (09:49→21:09)
[2017-04-24] MEDS: fentaNYL PATCH 25 MCG/HR 1 EA PATCH TD SCH (09:49)
[2017-04-24] MEDS ORDERED: MECLIZINE HCL 12.5 MG TAB PO PRN (10:00)
[2017-04-24] MEDS ORDERED: SODIUM BICARBONATE 650 MG TAB PO SCH (10:00)
[2017-04-24] MEDS: SODIUM BICARBONATE 650 MG TAB PO SCH ×2 (10:33→21:09)
[2017-04-24] MEDS ORDERED: NITROGLYCERIN 0.4 MG/HR PATCH TOP ONE (10:41)
[2017-04-24] MEDS ORDERED: NITROGLYCERIN 0.4 MG 25 EA TAB SL PRN (10:43)
[2017-04-24] MEDS: NITROGLYCERIN 0.4 MG/HR PATCH TOP SCH (10:57)
--- NOTE | 2017-04-24 12:09 | PN ---
DATE: 04/24/17 SUPERVISING PHYSICIAN: Raji Irwin M.D. SUBJECTIVE: The patient has had issues with hypertension throughout the night requiring multiple dosing with Clonidine as well as Labetalol. She continues to have a mild headache and some dizziness, but has not had any fevers and feels like she has made a little bit of improvement clinically, but again continues to have uncontrolled blood pressure. OBJECTIVE: VITAL SIGNS: Temperature 97.8, blood pressure this morning was 195/ 99 with a pulse of 57, satting 97% on room air with respirations of 20. She has had a blood pressure as high as 204/107 and has had some improvement after Clonidine down since admission to 189/84. I's and O's show a positive balance of 355 with 1855 in, 1500 out. Weight 74.3 kg which is actually down from admission of 75.2 kg. CHEST: Lungs are clear to auscultation bilaterally. HEART: Regular rate and rhythm. ABDOMEN: Soft, non-tender. Positive bowel sounds. EXTREMITIES: No clubbing, cyanosis or edema. NEUROLOGIC: She is alert and oriented times three and continues to report a headache that has been present since admission but did go away with some good blood pressure control as well as with Tylenol. LABORATORY: CBC today shows a white count of 7.3, hemoglobin is down to 8.5, hematocrit 26.1 with platelet count 186,000. Differential remains within normal limits. Chemistries this morning show sodium 138 with potassium 4.9, BUN 42, creatinine 3.36 which is down from admission of 3.53, glucose 181, calcium 7.6 which corrects to 8.2 for albumin of 2.7. Liver functions show to be within normal limits. MICROBIOLOGY: Urine culture is still pending. MRSA surveillance culture is pending. ASSESSMENT: 1. Metabolic acidosis on admission as noted by an elevated anion gap and low CO2 in a patient with chronic kidney disease felt to be secondary to underlying urinary tract infection versus environmental exposure with some heat exhaustion showing some improvement after IV therapy with bicarbonate drip with normal anion gap today. 2. Altered mental status prior to admission felt to be secondary to metabolic acidosis as noted above showing improvement after initiation of therapy. 3. Hyperkalemia in a chronic renal failure patient exacerbated by dehydration and metabolic acidosis, now normalized after treatment with calcium gluconate in the Emergency Department and a continuous sodium bicarbonate drip. 4. Acute on chronic renal failure with a baseline creatinine of 3.1 showing worsening function secondary to metabolic acidosis as noted in number 1 in a setting of dehydration and environmental exposure. 5. Dehydration secondary to poor oral intake and extreme environmental exposure with an elevated body temperature on admission now normalized. 6. Febrile illness felt to be secondary to environmental exposure with heat exhaustion and heat exposure with concern for possible early development of ongoing infection as noted with a urinary tract infection on admission with cultures pending. 7. Acute urinary tract infection, cystitis, with cultures pending. 8. Uncontrolled hypertension requiring ongoing adjustment. 9. Gastroesophageal reflux disease on a proton pump inhibitor. 10. Peptic ulcer disease. 11. Iron deficiency anemia secondary to chronic kidney disease showing some worsening of her hemoglobin and hematocrit since admission and initiation of therapy. 12. History of diverticulosis. PLAN: The patient continues to have episodes of uncontrolled hypertension requiring treatment with Labetalol and Clonidine. Will attempt to better control her blood pressure today with some Norvasc 5 mg and continued Clonidine p.r.n. and Labetalol as needed. Anticipate possibly needing further adjustment on medication regimen to assist in management and stabilization of her blood pressure. She remains on a bicarbonate drip at this point with D5W and 75 mEq of sodium bicarbonate to continue running at 120 an hour with a recheck of BMP this afternoon to further assess ongoing renal function. She remains on IV antibiotics for a urinary tract infection with Rocephin, awaiting final culture results to further target antibiotic therapy. She has been started on DVT prophylaxis. Her home medications have been resumed, including her Clonidine which I believe she had not taken yesterday. She has been apparently without her pain medicine and Robaxin for several weeks now. Will attempt to get her pain better controlled in efforts to help hopefully control her blood pressure. Will continue to monitor the patient closely and anticipate discharge hopefully tomorrow as she continues to show stabilization of her blood pressure and clinically improves in regards to her renal function. Until then, will continue to monitor the patient closely and treat appropriately. #[id number] [facility]
[2017-04-24] MEDS ORDERED: SODIUM BICARBONATE SYRINGE 50 MEQ/50 ML SYG IV ONE (16:06)
[2017-04-24] MEDS: SODIUM BICARBONATE SYRINGE 75 MEQ in DEXTROSE 5% 1000ML 1,000 ML IV PRN (16:30)
[2017-04-24] MEDS: METOPROLOL TARTRATE 50 MG TAB PO SCH (16:56)
[2017-04-24] MEDS ORDERED: SODIUM CHL 0.9% 50ML MIN-BAG+ 50 ML IVPB ONE (17:49)
[2017-04-24] MEDS ORDERED: cefTRIAXone SODIUM 1 GM VIAL ONE (17:49)
[2017-04-24] MEDS: cefTRIAXone SODIUM 1 GM in SODIUM CHL 0.9% 50ML MIN-BAG+ 50 ML IVPB SCH (19:52)
[2017-04-24] MEDS: METHOCARBAMOL 750 MG TAB PO PRN (23:07)
[2017-04-24] MEDS: REMOVE OLD PATCH TOP SCH (23:08)
[2017-04-25] MEDS ORDERED: LABETALOL INJ 5 MG/ML VIAL IV ONE ×3 (01:18→12:10)
[2017-04-25] MEDS ORDERED: SODIUM BICARBONATE SYRINGE 50 MEQ/50 ML SYG IV ONE (03:03)
[2017-04-25] MEDS ORDERED: DEXTROSE 5% 1000ML 1,000 ML IVS ONE (03:03)
[2017-04-25] MEDS: SODIUM BICARBONATE SYRINGE 75 MEQ in DEXTROSE 5% 1000ML 1,000 ML IV PRN (03:15)
[2017-04-25] MEDS: SODIUM CHLORIDE 0.9% (FLUSH) 10 ML SYG IV PRN ×2 (04:29→06:26)
[2017-04-25] MEDS: ONDANSETRON INJ 4 MG/2 ML VIAL IV PRN ×2 (04:29→14:56)
[2017-04-25] MEDS ORDERED: cloNIDine HCL 0.2 MG TAB PO ONE (06:12)
[2017-04-25] MEDS ORDERED: cloNIDine PATCH 0.2 MG/24HR 0.2 MG PATCH TD ONE (06:13)
[2017-04-25] MEDS: INSULIN LISPRO 100 UNITS/ML PEN SUBCU SCH ×4 (07:50→21:00)
[2017-04-25] MEDS: amLODIPine BESYLATE 5 MG TAB PO SCH ×2 (08:14→09:56)
[2017-04-25] MEDS: busPIRone HCL 5 MG TAB PO SCH ×2 (08:14→20:31)
[2017-04-25] MEDS: GABAPENTIN 300 MG CAP PO SCH ×3 (08:14→20:31)
[2017-04-25] MEDS: METOPROLOL TARTRATE 50 MG TAB PO SCH ×2 (08:14→16:28)
[2017-04-25] MEDS: cloNIDine HCL 0.1 MG TAB PO SCH (08:14)
[2017-04-25] MEDS: CALCIUM CARBONATE-VITAMIN D 500 MG TAB PO SCH (08:14)
[2017-04-25] MEDS: ACETAMINOPHEN W/COD #3 TAB 1 EA TAB PO SCH ×2 (08:14→20:30)
[2017-04-25] MEDS: SODIUM BICARBONATE 650 MG TAB PO SCH ×2 (08:14→20:31)
[2017-04-25] MEDS: ENOXAPARIN SODIUM 30 MG/0.3 ML SYG SUBCU SCH (08:15)
[2017-04-25] MEDS: SERTRALINE HCL 50 MG TAB PO SCH ×2 (08:37→20:30)
[2017-04-25] MEDS: SODIUM CHLORIDE 0.9% (FLUSH) 10 ML SYG IV SCH ×2 (08:38→19:10)
--- NOTE | 2017-04-25 11:17 | US ---
EXAM DESCRIPTION: Renal Arteries CLINICAL HISTORY: 56 years Female, Renal Failure Chronic presistant hypertension COMPARISON: None. TECHNIQUE: Real-time sonographic images of the kidneys and abdominal vasculature are obtained using renal artery stenosis protocol. FINDINGS: Peak systolic velocity of the right main renal artery is 161 cm/s. Peak systolic velocity of the left main renal artery is 130 cm/s. Peak systolic velocity of the abdominal aorta was not performed. IMPRESSION: No ultrasound evidence of renal artery stenosis. Renal artery velocities are within normal limits. Electronically signed by: Haris Rivero MD 04/25/2017 11:15 AM CDT
--- NOTE | 2017-04-25 11:18 | US ---
EXAM DESCRIPTION: Renal CLINICAL HISTORY: 56 years Female, hypertension; renal failure COMPARISON: None. TECHNIQUE: Real-time sonographic images of the kidneys obtained. FINDINGS: Right kidney measures 9.9 x 6.70 6.1 cm. Left kidney measures 9.7 x 6.3 x 5.6 cm. There is mild increased echogenicity of the renal cortex bilaterally. No hydronephrosis is seen. IMPRESSION: Mild increased renal cortex echogenicity could represent chronic medical renal disease. No ultrasound evidence of hydronephrosis. Electronically signed by: Haris Rivero MD 04/25/2017 11:16 AM CDT
--- NOTE | 2017-04-25 11:46 | PN ---
SUPERVISING PHYSICIAN: Raji Irwin MD DATE: 04/25/17 SUBJECTIVE: The patient continues to be hypertensive despite aggressive treatment with multiple doses of clonidine and labetalol continued. She remains without any symptoms at this time. She has a headache off and on, but this is nothing new. This has been occurring for the last month, she says. She has had no neurologic symptoms, no nausea or vomiting, no vision changes. After the patient was started on Norvasc initially, the patient described that she had a little bit of chest pressure, but felt this was more indigestion than anything. She was treated with nitro and put on nitro patch and had complete resolution of her pain with no EKG changes noted and all troponins have been within normal limits. She has had no recurrence of her chest pain. OBJECTIVE: VITAL SIGNS: Temperature 97.8. Maximum blood pressure has been up to 225/110 with blood pressure as low as 132/73 with labetalol and clonidine although is having some rebound hypertension between dosing. Heart rate has been controlled between 58 to 82. I&Os show a continued negative balance of 2074 with 1825 in, 3900 out. Weight is 74.8 kg, which is actually up 0.5 kg from yesterday. CHEST: Lungs clear to auscultation. HEART: Regular rate and rhythm. ABDOMEN: Soft, nontender. Positive bowel sounds. EXTREMITIES: No cyanosis, clubbing or edema. NEUROLOGIC: Alert and oriented times three with no obvious neuromotor deficits. Cranial nerves II-XII remain grossly intact. LABORATORY: White count today is 5.8, hemoglobin 8.8, hematocrit 27.0, platelet count 203,000, differential within normal limits. Chemistries today show normal electrolytes with potassium 5.0, BUN down to 38 from 44 at admission. Creatinine had leveled off and remains 3.31 and 3.39. Glucoses have been 140s to 200s. She had three sets of troponins, all negative being less than 0.02. EKG showed normal sinus rhythm with no ST changes. RADIOLOGY: Aortic and renal arterial Dopplers are pending. Renal ultrasound is pending. ASSESSMENT: 1. Metabolic acidosis on admission as noted by an elevated anion gap and low CO2 in a patient with chronic kidney disease, secondary to underlying urinary tract infection versus environmental exposure with some heat exhaustion and exacerbated by dehydration, showing improvement after IV therapy with bicarbonate drip with now a normal anion gap and normal electrolytes. 2. Altered mental status prior to admission felt to be secondary to metabolic acidosis as noted above, improved after initiation of therapy with no new neurological events. 3. Hyperkalemia in a chronic renal failure patient exacerbated by dehydration and metabolic acidosis, now normalized after treatment with calcium gluconate in the Emergency Department and a continuous sodium bicarbonate drip. 4. Acute on chronic renal failure with a baseline creatinine of 3.1, showing worsening function secondary to metabolic acidosis as noted in #1 in a setting of dehydration and environmental exposure, now stable although creatinine is above her baseline. 5. Dehydration secondary to poor oral intake and extreme environmental exposure from heat with an elevated body temperature on admission, now normalized. 6. Febrile illness felt to be secondary to environmental exposure with heat exhaustion and heat exposure with concern for possible early development of ongoing infection, question rhabdomyolysis as well as notable dehydration, now afebrile since admission with the patient being on Rocephin for coverage of the urinary tract infection with cultures pending. 7. Acute urinary tract infection, cultures pending. 8. Uncontrolled hypertension with some urgency requiring aggressive ongoing management and adjustment with both clonidine and labetalol. The patient did receive a Procrit injection the Tuesday prior to admission which could be possibly contributing to her uncontrolled hypertension. 9. Gastroesophageal reflux disease on a proton pump inhibitor. 10. Peptic ulcer disease, possibly exacerbating the occurrence of chest pains. 11. Chest pains, felt to be secondary to gastroesophageal reflux disease and peptic ulcer disease with the patient showing no changes in EKG and resolution of chest pains with troponins being within normal limits times three. 12. Iron deficiency anemia secondary to chronic kidney disease, showing stabilization of her hemoglobin and hematocrit since admission and initiation IV of therapy with the patient having received Procrit this past Tuesday. 13. History of diverticulosis. PLAN: I did visit with Dr. Finn in regards to the patient's hypertension and renal function. He felt we were doing well with attempting to manage her blood pressure. He recommended we add clonidine q.8h. to prevent any rebound hypertension, which apparently is occurring at this point as she does respond well to labetalol and additional clonidine. I did start her on a clonidine patch 0.2, but as noted we will note its effects within the next 24 to 48 hours. She has been saline locked today as her electrolytes have shown improvement. She will be encouraged to take adequate p.o. fluids. We will continue with management again with clonidine q.8h. and closely observe and utilize labetalol as necessary for any rebound hypertension. Dr. Finn noted that if she continues to show persistent hypertension despite treatment, he would be glad to further consult in consideration of further treatment in Telephone if necessary. We will await ultrasound studies of the kidneys to further rule out any other etiology of the ongoing hypertension. It is also noted that I discussed the Procrit injection with Dr. Finn and he notes that around 2% of patients do show hypertensive urgency two to three days post injection, but this should resolve around day three of four, we just need to closely monitor and treat as we are at this point. We will continue to monitor the patient closely and again address her blood pressure more aggressively as needed. We will anticipate hopefully discharging tomorrow or the next once her pressures are stable. Until then, we will continue to monitor the patient closely and treat appropriately. #[id number] [facility]
[2017-04-25] MEDS: NITROGLYCERIN 0.4 MG/HR PATCH TOP SCH (13:50)
[2017-04-25] MEDS ORDERED: cloNIDine HCL 0.2 MG TAB ONE (15:39)
[2017-04-25] MEDS: cloNIDine HCL 0.2 MG TAB PO SCH ×2 (15:40→20:30)
[2017-04-25] MEDS ORDERED: OMEPRAZOLE CAP 20 MG CAP ONE (18:56)
[2017-04-25] MEDS ORDERED: SODIUM CHL 0.9% 50ML MIN-BAG+ 50 ML IVPB ONE (18:56)
[2017-04-25] MEDS ORDERED: cefTRIAXone SODIUM 1 GM VIAL ONE (18:57)
[2017-04-25] MEDS: cefTRIAXone SODIUM 1 GM in SODIUM CHL 0.9% 50ML MIN-BAG+ 50 ML IVPB SCH (19:10)
[2017-04-25] MEDS: OMEPRAZOLE CAP 20 MG CAP PO SCH (20:31)
[2017-04-25] MEDS: REMOVE OLD PATCH TOP SCH (23:00)
[2017-04-26] MEDS: METHOCARBAMOL 750 MG TAB PO PRN (01:52)
[2017-04-26] MEDS: cloNIDine HCL 0.2 MG TAB PO SCH (05:57)
[2017-04-26] MEDS: INSULIN LISPRO 100 UNITS/ML PEN SUBCU SCH ×4 (07:01→22:26)
[2017-04-26] MEDS: SODIUM BICARBONATE 650 MG TAB PO SCH ×2 (08:02→20:30)
[2017-04-26] MEDS: GABAPENTIN 300 MG CAP PO SCH (08:02)
[2017-04-26] MEDS: amLODIPine BESYLATE 5 MG TAB PO SCH (08:02)
[2017-04-26] MEDS: CALCIUM CARBONATE-VITAMIN D 500 MG TAB PO SCH (08:02)
[2017-04-26] MEDS: ACETAMINOPHEN W/COD #3 TAB 1 EA TAB PO SCH ×2 (08:02→20:31)
[2017-04-26] MEDS: METOPROLOL TARTRATE 50 MG TAB PO SCH ×2 (08:02→17:04)
[2017-04-26] MEDS: ENOXAPARIN SODIUM 30 MG/0.3 ML SYG SUBCU SCH (08:03)
[2017-04-26] MEDS: SODIUM CHLORIDE 0.9% (FLUSH) 10 ML SYG IV SCH ×2 (08:03→20:31)
[2017-04-26] MEDS: busPIRone HCL 5 MG TAB PO SCH ×2 (08:03→20:30)
[2017-04-26] MEDS: DOCUSATE SODIUM 100 MG CAP PO SCH (08:06)
[2017-04-26] MEDS: SERTRALINE HCL 50 MG TAB PO SCH ×2 (08:06→20:30)
[2017-04-26] MEDS ORDERED: GABAPENTIN 300 MG CAP PO SCH (09:00)
[2017-04-26] MEDS ORDERED: GABAPENTIN 300 MG CAP PO ONE (09:00)
[2017-04-26] MEDS ORDERED: cloNIDine PATCH 0.1MG/24HR 0.1 MG PATCH TD ONE ×2 (09:18→09:30)
[2017-04-26] MEDS: cloNIDine PATCH 0.2 MG/24HR 0.2 MG, cloNIDine PATCH 0.1MG/24HR 0.1 MG TD SCH ×2 (09:22)
[2017-04-26] MEDS: NITROGLYCERIN 0.4 MG/HR PATCH TOP SCH (10:02)
[2017-04-26] MEDS ORDERED: cloNIDine HCL 0.2 MG TAB PO ONE (12:13)
[2017-04-26] MEDS: cloNIDine HCL 0.1 MG TAB PO SCH ×2 (14:43→22:26)
[2017-04-26] MEDS ORDERED: SOD POLYSTYRENE SULFONATE 15 GM/60 ML BTTL PO ONE (16:50)
[2017-04-26] MEDS ORDERED: PROCHLORPERAZINE INJ 10 MG/2 ML VIAL IV ONE (17:14)
--- NOTE | 2017-04-26 19:06 | PN ---
DATE: 04/26/17 SUPERVISING PHYSICIAN: Raji Irwin M.D. SUBJECTIVE: The patient is resting in bed. She has no complaints of chest pain , shortness of breath or nausea or vomiting. She complained of a headache earlier when her blood pressure was high, but she feels better now and has been sleeping most of the afternoon. OBJECTIVE: Temperature is 96.8, pule rate 61, blood pressure got up as high a 219/124, it is now 157/81, respiratory rate 18, O2 sat is 95% on room air. GENERAL: This is a 56 year-old female patient who is lying in her hospital bed. She is in no acute distress. RESPIRATORY: Clear to auscultation bilaterally. CARDIAC: Regular rate and rhythm. ABDOMEN: Soft, nondistended, non-tender. Bowel sounds are positive. NEUROLOGIC: She is awake, alert and oriented times three. LABORATORY: Hemoglobin and hematocrit are stable at 8.8 and 26.9. Sodium 137, potassium 5.9, BUN 33, creatinine 3.37, glucose 135, calcium 7.9. All other labs and films have been reviewed via the EMR. ASSESSMENT: 1. Metabolic acidosis on admission as noted by an elevated anion gap and low CO2 in a patient with chronic kidney disease secondary to underlying urinary tract infection versus environmental exposure with some heat exhaustion and exacerbated by dehydration showing improvement after IV therapy with bicarbonate drip and now a normal anion gap and normal electrolytes. 2. Hyperkalemia with potassium 5.9. 3. Hypertension with hypertensive crisis requiring adjustment on her antihypertensives. 4. Altered mental status prior to admission most likely secondary to metabolic acidosis that has now improved. 5. Acute on chronic renal failure with a baseline creatinine of 3.1 and her creatinine is now 3.3. 6. Acute urinary tract infection with preliminary cultures showing gram- negative rods as well as gram positive cocci presently on Ceftriaxone. 7. Gastroesophageal reflux disease. 8. Peptic ulcer disease. 9. Chest pain that was felt to be secondary to gastroesophageal reflux disease and peptic ulcer disease with no changes on her EKG and normal cardiac enzymes. 10. Iron deficiency anemia secondary to chronic kidney disease. 11. History of diverticulosis. PLAN: We will continue present supportive care and therapies. I spoke with Dr. Finn today and will increase her Clonidine to 0.3 mg every 8 hours. She may require further adjustments and I have placed a Catapres patch on her until her blood pressures normalize. I have repeated some labs in the morning. I have also given her some Kayexalate today for her elevated potassium. I will check that again in the morning. Meanwhile, we will continue to monitor the patient closely and followup as needed. Dr. Irwin is the collaborating physician available for consultation. #[id number] [facility]
[2017-04-26] MEDS ORDERED: SODIUM CHL 0.9% 50ML MIN-BAG+ 50 ML IVPB ONE (19:20)
[2017-04-26] MEDS ORDERED: cefTRIAXone SODIUM 1 GM VIAL ONE (19:21)
[2017-04-26] MEDS: cefTRIAXone SODIUM 1 GM in SODIUM CHL 0.9% 50ML MIN-BAG+ 50 ML IVPB SCH (19:36)
[2017-04-26] MEDS: IV SET AND CAP CHANGE INJ INJ SCH (19:37)
[2017-04-26] MEDS: OMEPRAZOLE CAP 20 MG CAP PO SCH (20:31)
[2017-04-26] MEDS: ONDANSETRON INJ 4 MG/2 ML VIAL IV PRN (22:08)
[2017-04-26] MEDS: REMOVE OLD PATCH TOP SCH (22:27)
[2017-04-27] MEDS: METHOCARBAMOL 750 MG TAB PO PRN (00:43)
[2017-04-27] MEDS: cloNIDine PATCH 0.2 MG/24HR 0.2 MG, cloNIDine PATCH 0.1MG/24HR 0.1 MG TD SCH ×2 (03:14)
[2017-04-27] MEDS: cloNIDine HCL 0.1 MG TAB PO SCH ×3 (05:36→22:10)
[2017-04-27] MEDS: INSULIN LISPRO 100 UNITS/ML PEN SUBCU SCH ×4 (08:15→22:10)
[2017-04-27] MEDS: METOPROLOL TARTRATE 50 MG TAB PO SCH ×2 (08:26→17:33)
[2017-04-27] MEDS: busPIRone HCL 5 MG TAB PO SCH ×2 (08:26→20:07)
[2017-04-27] MEDS: ENOXAPARIN SODIUM 30 MG/0.3 ML SYG SUBCU SCH (08:26)
[2017-04-27] MEDS: GABAPENTIN 300 MG CAP PO SCH (08:27)
[2017-04-27] MEDS: amLODIPine BESYLATE 5 MG TAB PO SCH (08:28)
[2017-04-27] MEDS: CALCIUM CARBONATE-VITAMIN D 500 MG TAB PO SCH (08:28)
[2017-04-27] MEDS: SODIUM CHLORIDE 0.9% (FLUSH) 10 ML SYG IV SCH ×2 (08:28→20:07)
[2017-04-27] MEDS: SERTRALINE HCL 50 MG TAB PO SCH ×2 (08:29→20:07)
[2017-04-27] MEDS: SODIUM BICARBONATE 650 MG TAB PO SCH ×2 (08:34→20:07)
[2017-04-27] MEDS: ACETAMINOPHEN W/COD #3 TAB 1 EA TAB PO SCH ×2 (08:44→20:07)
[2017-04-27] MEDS: fentaNYL PATCH 25 MCG/HR 1 EA PATCH TD SCH (08:44)
[2017-04-27] MEDS ORDERED: ONDANSETRON INJ 4 MG/2 ML VIAL IV PRN (10:16)
[2017-04-27] MEDS ORDERED: VANCOMYCIN PER PHARMACY IVPB SCH (10:30)
--- NOTE | 2017-04-27 10:43 | PN ---
SUPERVISING PHYSICIAN: Raji Irwin MD DATE: 04/27/17 SUBJECTIVE: The patient is sleeping in her bed. She awakens easily. She complains of nausea and she has a difficult time eating, but she has no complaints of chest pain, headache or shortness of breath. OBJECTIVE: VITAL SIGNS: Blood pressure has been as low at 99/54 and in the last 24 hours has been as high of 201/93. Respiratory rate 14. O2 saturation 93% on room air. LUNGS: Clear to auscultation bilaterally. CARDIAC: Regular rate and rhythm. ABDOMEN: Soft, nontender, nondistended. Bowel sounds are positive. NEUROLOGIC: Awake, alert and oriented times three. LABORATORY: Hemoglobin is improved to 9.2, hematocrit 30.1. Blood sugars have run from 113 to 195. Sodium 136, potassium improved to 5.1. Creatinine 3.28, calcium 8.1, phosphorous 6.5. Urine culture is positive for Morganella morganii and enterococcus faecalis. The Morganella is sensitive to ceftriaxone. All other labs and films have been reviewed via the EMR. ASSESSMENT: 1. Metabolic acidosis on admission as noted by an elevated anion gap and low CO2 in a patient with chronic kidney disease secondary to underlying urinary tract infection. 2. Hyperkalemia with now of potassium 5.1. 3. Hypertension with hypertensive crisis requiring continuing adjustments of her antihypertensives. 4. Altered mental status prior to admission, now improved. 5. Acute on chronic renal failure with a baseline creatinine of 3.1. 6. Acute urinary tract infection with cultures showing Enterococcus faecalis and Morganella morganii, presently on ceftriaxone. We will add vancomycin. 7. Gastroesophageal reflux disease. 8. Peptic ulcer disease. 9. Chest pain with negative cardiac enzymes. 10. Iron deficiency anemia secondary to chronic kidney disease. 11. History of diverticulosis. PLAN: We will continue present supportive care. I have added vancomycin to her antibiotic regimen given her sensitivities on her urine culture. I spoke with Dr. Finn earlier today and he agreed that we should take the Catapres patch off, which I have done and we may need to adjust he reported clonidine up to every 6 hours, but we will watch her blood pressure and adjust as needed. Dr. Finn wants to see her next Tuesday in the clinic in [place]. He would like her to go in on Tuesday to get CMP, CBC, magnesium and phosphorous done so he will have the results hen he sees her on Tuesday. I have also added some Zofran for her nausea and ordered AM labs. We will continue to monitor the patient closely and followup as needed. Dr. Irwin is the collaborating physician and available for consultation. [facility][id number] [facility]
[2017-04-27] MEDS: NITROGLYCERIN 0.4 MG/HR PATCH TOP SCH (11:53)
[2017-04-27] MEDS ORDERED: VANCOMYCIN HCL INJ 1,000 MG in SODIUM CHLORIDE 0.9% 250ML 250 ML IVPB SCH (12:00)
[2017-04-27] MEDS ORDERED: SODIUM CHLORIDE 0.9% 250ML 250 ML ONE (12:12)
[2017-04-27] MEDS ORDERED: VANCOMYCIN HCL INJ 1,000 MG VIAL IVPB ONE (12:14)
[2017-04-27] MEDS ORDERED: SODIUM CHL 0.9% 50ML MIN-BAG+ 50 ML IVPB ONE (19:51)
[2017-04-27] MEDS ORDERED: cefTRIAXone SODIUM 1 GM VIAL ONE (19:52)
[2017-04-27] MEDS: cefTRIAXone SODIUM 1 GM in SODIUM CHL 0.9% 50ML MIN-BAG+ 50 ML IVPB SCH (20:00)
[2017-04-27] MEDS: OMEPRAZOLE CAP 20 MG CAP PO SCH (20:06)
[2017-04-27] MEDS: REMOVE OLD PATCH TOP SCH (22:11)
[2017-04-28] MEDS ORDERED: cloNIDine HCL 0.2 MG TAB PO ONE (02:58)
[2017-04-28] MEDS ORDERED: LABETALOL INJ 5 MG/ML VIAL ONE (05:16)
[2017-04-28] MEDS ORDERED: LABETALOL INJ 5 MG/ML VIAL IV ONE (05:20)
[2017-04-28] MEDS: cloNIDine HCL 0.1 MG TAB PO SCH ×3 (05:56→17:49)
[2017-04-28] MEDS: INSULIN LISPRO 100 UNITS/ML PEN SUBCU SCH ×4 (08:14→21:11)
[2017-04-28] MEDS: METOPROLOL TARTRATE 50 MG TAB PO SCH ×2 (08:17→17:49)
[2017-04-28] MEDS: DOCUSATE SODIUM 100 MG CAP PO SCH (08:18)
[2017-04-28] MEDS: amLODIPine BESYLATE 5 MG TAB PO SCH (08:19)
[2017-04-28] MEDS: GABAPENTIN 300 MG CAP PO SCH (08:19)
[2017-04-28] MEDS: CALCIUM CARBONATE-VITAMIN D 500 MG TAB PO SCH (08:19)
[2017-04-28] MEDS: ENOXAPARIN SODIUM 30 MG/0.3 ML SYG SUBCU SCH (08:19)
[2017-04-28] MEDS: ACETAMINOPHEN W/COD #3 TAB 1 EA TAB PO SCH ×2 (08:20→20:28)
[2017-04-28] MEDS: SERTRALINE HCL 50 MG TAB PO SCH ×2 (08:20→20:26)
[2017-04-28] MEDS: SODIUM BICARBONATE 650 MG TAB PO SCH ×2 (08:20→20:25)
[2017-04-28] MEDS: SODIUM CHLORIDE 0.9% (FLUSH) 10 ML SYG IV SCH ×2 (08:20→20:26)
[2017-04-28] MEDS: busPIRone HCL 5 MG TAB PO SCH ×2 (09:10→20:26)
[2017-04-28] MEDS: NITROGLYCERIN 0.4 MG/HR PATCH TOP SCH (10:25)
[2017-04-28] MEDS ORDERED: ACETAMINOPHEN 325 MG TAB PO PRN (10:48)
[2017-04-28] MEDS: ONDANSETRON INJ 4 MG/2 ML VIAL IV PRN (11:40)
[2017-04-28] MEDS ORDERED: AMPICILLIN SODIUM INJ 2 GM VIAL ONE ×2 (11:50→19:31)
[2017-04-28] MEDS ORDERED: SODIUM CHL 0.9% 100ML MINI-BAG 100 ML IVPB ONE ×2 (11:50→19:31)
[2017-04-28] MEDS: AMPICILLIN INJ 2GM 2 GM in SODIUM CHL 0.9% 100ML MINI-BAG 100 ML IVPB SCH ×2 (12:13→20:24)
--- NOTE | 2017-04-28 18:49 | PN ---
DATE: 04/28/17 SUPERVISING PHYSICIAN: Raji Irwin M.D. SUBJECTIVE: The patient is sitting up on the side of her bed. She denies any chest pain, shortness of breath or abdominal pain. Denies headache. OBJECTIVE: She is afebrile. Blood pressure has run from about 175/89 to 205/ 90. Respiratory rate 18, O2 sat is 97%. RESPIRATORY: Clear to auscultation bilaterally. CARDIAC: Regular rate and rhythm. ABDOMEN: Soft, nondistended, non-tender. Bowel sounds are positive. EXTREMITIES: No cyanosis, clubbing or edema. NEUROLOGIC: She is awake, alert and oriented times three. LABORATORY: H&H is stable at 9.5 and 29.9. Sodium 139, potassium is down to 4.4, chloride 103, carbon dioxide 23, BUN 38, creatinine 3.6, glucose has been running between 135 and 177, calcium 8.3, phosphorus 6.1, magnesium 2.2. All other labs and films have been reviewed via the EMR. ASSESSMENT: 1. Hypertension with hypertensive crisis requiring continued adjustments of her antihypertensives. 2. Metabolic acidosis on admission as noted by an elevated anion gap and low CO2 in a patient with chronic kidney disease secondary to an underlying urinary tract infection that has now mostly resolved. 3. Hyperkalemia with a potassium now of 4.4. 4. Acute on chronic renal failure with a baseline creatinine of 3.1. 5. Acute urinary tract infection with cultures showing Enterococcus faecalis and Morganella morganii presently on Ceftriaxone and recently changed from vancomycin to high dose Ampicillin. 6. Gastroesophageal reflux disease. 7. Peptic ulcer disease. 8. Chest pain on admission with negative cardiac enzymes that have now resolved. 9. Iron deficiency anemia secondary to chronic kidney disease. 10. History of diverticulosis. PLAN: We will continue present supportive care. I discontinued her vancomycin due to a slight bump in her creatinine overnight. I spoke with Dr. Finn and he agreed that we should switch her off the vancomycin and switch her to high dose Ampicillin. We will continue on her Ceftriaxone. I have discontinued her Nitro patch as well as the Catapres patches. She is still having rather high blood pressures and I discussed her hypertension with Dr. Finn. He agreed that we should discontinue those patches and start her on Hydralazine 50 mg t.i.d. and to give her time for her blood pressure to normalize. He also recommended that she be placed on a diet that is low in phosphorus and to discontinue any dairy products. He will also see her at the [facility] next Tuesday and she is to have some routine blood work on Tuesday prior to seeing him. At this point, because of her urinary tract infection we probably with need to discharge her from Acute Care setting and change her to Swing Bed admission for antibiotic therapy as the only oral antibiotic that is sensitive to the Enterococcus is Macrobid and that would be very hard on her kidneys, so she will need several days of IV antibiotics. It would be beneficial probably to call Dr. Friedman at some point. I will consult Maria Antonia Freeman, Drying And Winding Supervisor, about Swing Bed admission. Will continue to monitor her blood pressure closely. Dr. Irwin is the collaborating physician and available for consultation. #[id number] [facility]
[2017-04-28] MEDS ORDERED: SODIUM CHL 0.9% 50ML MIN-BAG+ 50 ML IVPB ONE (19:30)
[2017-04-28] MEDS ORDERED: cefTRIAXone SODIUM 1 GM VIAL ONE (19:31)
[2017-04-28] MEDS: cefTRIAXone SODIUM 1 GM in SODIUM CHL 0.9% 50ML MIN-BAG+ 50 ML IVPB SCH (19:42)
[2017-04-28] MEDS: OMEPRAZOLE CAP 20 MG CAP PO SCH (20:25)
[2017-04-28] MEDS: METHOCARBAMOL 750 MG TAB PO PRN (22:53)
[2017-04-28] MEDS: REMOVE OLD PATCH TOP SCH (22:59)
[2017-04-29] MEDS: cloNIDine HCL 0.1 MG TAB PO SCH ×2 (00:05→05:46)
[2017-04-29] MEDS ORDERED: SODIUM CHL 0.9% 100ML MINI-BAG 100 ML IVPB ONE ×2 (03:01→10:50)
[2017-04-29] MEDS ORDERED: AMPICILLIN SODIUM INJ 2 GM VIAL ONE ×2 (03:01→10:50)
[2017-04-29] MEDS: AMPICILLIN INJ 2GM 2 GM in SODIUM CHL 0.9% 100ML MINI-BAG 100 ML IVPB SCH (03:55)
[2017-04-29] MEDS ORDERED: BIFIDOBACTERIUM INFANTIS 4 MG CAP ONE (07:15)
[2017-04-29] MEDS: METOPROLOL TARTRATE 50 MG TAB PO SCH (07:21)
[2017-04-29] MEDS: INSULIN LISPRO 100 UNITS/ML PEN SUBCU SCH ×2 (07:21→11:41)
[2017-04-29] MEDS ORDERED: BIFIDOBACTERIUM INFANTIS 4 MG CAP PO SCH (09:00)
[2017-04-29] MEDS: SERTRALINE HCL 50 MG TAB PO SCH (09:07)
[2017-04-29] MEDS: GABAPENTIN 300 MG CAP PO SCH (09:07)
[2017-04-29] MEDS: amLODIPine BESYLATE 5 MG TAB PO SCH (09:07)
[2017-04-29] MEDS: CALCIUM CARBONATE-VITAMIN D 500 MG TAB PO SCH (09:07)
[2017-04-29] MEDS: busPIRone HCL 5 MG TAB PO SCH (09:08)
[2017-04-29] MEDS: ACETAMINOPHEN W/COD #3 TAB 1 EA TAB PO SCH (09:08)
[2017-04-29] MEDS: SODIUM CHLORIDE 0.9% (FLUSH) 10 ML SYG IV SCH (09:08)
[2017-04-29] MEDS: ENOXAPARIN SODIUM 30 MG/0.3 ML SYG SUBCU SCH (09:08)
[2017-04-29] MEDS: SODIUM BICARBONATE 650 MG TAB PO SCH (09:17)
[2017-04-29 10:44] VITALS: BP 163/89; TEMP 98.3; O2SAT 97
[2017-04-29] MEDS ORDERED: SUCRALFATE 1 GM/10 ML 1 GM UD PO PRN (10:44)
[2017-04-29] MEDS ORDERED: SUCRALFATE 1 GM/10 ML 1 GM UD ONE (10:50)
[2017-04-29] MEDS: NITROGLYCERIN 0.4 MG/HR PATCH TOP SCH ×2 (10:52→11:41)
[2017-04-29] MEDS: ONDANSETRON INJ 4 MG/2 ML VIAL IV PRN (11:27)
--- NOTE | 2017-04-29 13:33 | DS ---
DISCHARGE SUMMARY/HISTORY AND PHYSICAL FOR SWING BED DISCHARGE DIAGNOSIS: 1. Significant hypertensive crisis requiring ongoing adjustment and addition to antihypertensive medication treatment. 2. Significant chronic renal failure with acute exacerbation and worsening. 3. Acute metabolic acidosis on admission noted with elevated anion gap and decreased CO2, requiring ongoing treatment course for metabolic stabilization. 4. Acute urinary tract infection with cultures showing resistant Enterococcus faecalis and Morganella morganii, treated with ceftriaxone and currently on high dose ampicillin for Enterococcus faecalis because of vancomycin's potential nephrotoxicity, requiring additional parenteral days of treatment to clear the significant infection. 5. Altered level of consciousness, probably secondary to the acute urinary tract infection, showing improvement. 6. Hyperkalemia with potassium slowly improving. 7. History of gastroesophageal reflux disease. 8. Peptic ulcer disease. 9. History of gastric bypass surgery, currently symptomatic. 10. History of chest pain with negative cardiac enzymes, showing no significant evidence of underlying ischemic coronary disease. 11. Chronic anemia with microcytic/hypochromic presentation, iron deficiency, secondary probably to chronic kidney disease. 12. History of diverticulosis. HISTORY OF PRESENT ILLNESS: This 56-year-old, white female was found poorly responsive by family members and brought to the Emergency Room. She has had a history of chronic renal failure with an acute exacerbation. Evidence of a urinary tract infection with a febrile illness, temperature of 101.1, and significant hypertensive response to the illness continued for many days. Her kidney failure was treated under Dr. Finn's direction to assist with the metabolic improvement which also assisted the metabolic acidosis as well as lowering the elevated phosphorous levels as well as hyperkalemic treatment as well. She is very symptomatic also with her gastric bypass surgery. LABORATORY: White count stayed normal and was 5,700 with 62% neutrophils at discharge. Hemoglobin 9.6. Chemistries showed improvement of the potassium from 6.2 down to 4.5. BUN improved from 44 down to 35, creatinine from 3.53 down to 3.38. Glucose had spells down to 51 and was fasting about 202 on day of discharge. Osmolality 285, phosphorous was down from 6.5 to 5.3. Liver enzymes are within normal limits. Troponin was 0 during the hospital course. Albumin low at 2.7. Urinalysis showed pyuria with 1+ bacteruria with proteinuria and glycosuria noted. Toxicology showed no drug positive results and ethanol was 0. Cultures showed urine positive for Morganella morganii sensitive to ceftriaxone and Enterococcus faecalis which was sensitive to high dose ampicillin initiated after initial treatment with vancomycin was stopped because of potential nephrotoxicity. Nasal surveillance was negative for MRSA. RADIOLOGY: X-rays showed no acute abnormalities. CT head because of her altered level of consciousness showed no acute intracranial findings. Aortorenal ultrasound showed no significant evidence of renal artery stenosis. HOSPITAL COURSE: The patient was treated supportively with increasing dosings of antihypertensive to included increased dose of clonidine and hydralazine added to the beta blockade as well as calcium channel blockers. The patient will require additional days of IV parenteral therapy. Therefore, Swing Bed rehabilitation is required at least until the first of next week when she will have close followup with Dr. Finn. Physical therapy will also be required to help her because of her increased fall risk and strengthening is to continue during her rehab on Swing Bed. PAST MEDICAL HISTORY: 1. Hypertension. 2. Diverticulosis. 3. Gastroesophageal reflux disease. 4. Peptic ulcer disease. 5. Chronic renal failure stage IV. 6. Osteopenia. 7. Peripheral central neuropathies. 8. Iron deficiency anemia. PAST SURGICAL HISTORY: 1. Hernia repair in 1992. 2. Hysterectomy in 1991. 3. Toe amputation. 4. Cholecystectomy in 1997. 5. Tonsillectomy and adenoidectomy. 6. Bladder suspension. 7. Cataract removal on the right. 8. Previous surgical debridement of a wound on the foot. 9. Gastric bypass. HOME MEDICATIONS: 1. Lopressor 100 mg 1 twice daily. 2. Vitamin B2 50,000 units capsules weekly times 8 weeks and then daily after that. 3. Clonidine 0.1 mg b.i.d. 4. Zoloft 100 mg b.i.d. 5. Buspirone 15 mg tablets twice daily. 6. Sodium bicarbonate 325 mg 4 tablets twice daily. 7. Omeprazole extended release 40 mg one daily. 8. Gabapentin 300 mg tablets one 3 times a day. 9. Citracal maximum Vitamin D tablet 1 daily. 10. Robaxin 500 mg tablet one 3 times a day. 11. Tylenol with codeine #4, one b.i.d. 12. Fentanyl 25 mcg transdermal patch every 72 hours. FAMILY HISTORY: Father at age 76 secondary to diabetes and congestive heart failure. Mother from type 2 diabetes and hypertension. She has a sister that has diabetes, hypertension and congestive heart failure, and 2 sons that have hypertension. SOCIAL HISTORY: The patient is . She lives in [place]. She denies ever smoking but does note that she smokes as a social smoker when she is drinking, which is very infrequent. She does drink alcohol infrequently. Denies any illicit drug use. REVIEW OF SYSTEMS: CONSTITUTIONAL: Denies any previous fever or chills, but does not she has had some general malaise. HEENT: Notes that her right ear hurts and she has been seen previously by Dr. Finn and diagnosed with vertigo, and currently on [id number] treatment with Meclizine. RESPIRATORY: Denies any cough, congestion, shortness of breath. CARDIOVASCULAR: Denies any chest pains, palpitations or any previous syncopal episodes. GASTROINTESTINAL: Denies any constipation but notes that she has had some nausea since admission, but prior to admission was not reporting any nausea. She has had no diarrhea. GENITOURINARY: Denies any dysuria. Does have a history of chronic kidney disease and is followed by Dr. Finn. MUSCULOSKELETAL: Chronic back pain for which she takes Fentanyl for. NEUROLOGIC: As notes in the History of Present Illness, initially acute mental status change, but prior to this event denied any neurological changes other than some dizziness as noted with the vertigo. ENDOCRINE: Noted that she has had a history of diabetes in the past but no longer has a problem with it since she has had a gastric bypass. PLAN: The patient is to be admitted to Swing Bed on 04/29/17 to continue with physical therapy as well as continued parenteral IV antibiotics for a complete course of therapy to be completed by next Tuesday. She will be seen in the outpatient department at the [facility] by Dr. Finn next Tuesday , 05/04/17, at 10 AM. She will followup with Dr. Wilson in 7 to 10 days when possible. Please refer to home medications to be continued as well as the high dose ampicillin and ceftriaxone to be continued as listed in the record. Close followup as an outpatient after Swing Bed discharge after next week is encouraged. [facility][id number] [facility]
[2017-05-02] MEDS ORDERED: REMOVE OLD PATCH TOP ONE (09:00)
[2017-05-02] MEDS ORDERED: cloNIDine PATCH 0.2 MG/24HR 0.2 MG, cloNIDine PATCH 0.1MG/24HR 0.1 MG TD SCH ×2 (09:00)
== END 2017-04-29 11:55 | disposition swing bed (61) | DRG 641 ==
LOC: ER 15:03 → MS 17:52
PROVIDERS: ADMIT Nurse Practitioner Family; ATTEND Nurse Practitioner Family
DX: E87.2 Acidosis (principal); I16.9 Hypertensive crisis, unspecified; N17.9 Acute kidney failure, unspecified; N18.4 Chronic kidney disease, stage 4 (severe); N39.0 Urinary tract infection, site not specified; I12.9 Hypertensive chronic kidney disease with stage 1 through stage 4 chronic kidney disease, or unspecified chronic kidney disease; E87.5 Hyperkalemia; K21.9 Gastro-esophageal reflux disease without esophagitis; D50.9 Iron deficiency anemia, unspecified; G62.9 Polyneuropathy, unspecified; M85.80 Other specified disorders of bone density and structure, unspecified site; G89.29 Other chronic pain; M54.9 Dorsalgia, unspecified; E86.0 Dehydration; D63.1 Anemia in chronic kidney disease; K27.9 Peptic ulcer, site unspecified, unspecified as acute or chronic, without hemorrhage or perforation; B95.2 Enterococcus as the cause of diseases classified elsewhere; Z98.84 Bariatric surgery status

== ENCOUNTER 2017-04-29 11:30 | Inpatient (IN) | payer MEDICARE, BC ==
--- NOTE | 2017-04-29 16:48 | HP ---
DISCHARGE SUMMARY/HISTORY AND PHYSICAL FOR SWING BED DISCHARGE DIAGNOSIS: 1. Significant hypertensive crisis requiring ongoing adjustment and addition to antihypertensive medication treatment. 2. Significant chronic renal failure with acute exacerbation and worsening. 3. Acute metabolic acidosis on admission noted with elevated anion gap and decreased CO2, requiring ongoing treatment course for metabolic stabilization. 4. Acute urinary tract infection with cultures showing resistant Enterococcus faecalis and Morganella morganii, treated with ceftriaxone and currently on high dose ampicillin for Enterococcus faecalis because of vancomycin's potential nephrotoxicity, requiring additional parenteral days of treatment to clear the significant infection. 5. Altered level of consciousness, probably secondary to the acute urinary tract infection, showing improvement. 6. Hyperkalemia with potassium slowly improving. 7. History of gastroesophageal reflux disease. 8. Peptic ulcer disease. 9. History of gastric bypass surgery, currently symptomatic. 10. History of chest pain with negative cardiac enzymes, showing no significant evidence of underlying ischemic coronary disease. 11. Chronic anemia with microcytic/hypochromic presentation, iron deficiency, secondary probably to chronic kidney disease. 12. History of diverticulosis. HISTORY OF PRESENT ILLNESS: This 56-year-old, white female was found poorly responsive by family members and brought to the Emergency Room. She has had a history of chronic renal failure with an acute exacerbation. Evidence of a urinary tract infection with a febrile illness, temperature of 101.1, and significant hypertensive response to the illness continued for many days. Her kidney failure was treated under Dr. Finn's direction to assist with the metabolic improvement which also assisted the metabolic acidosis as well as lowering the elevated phosphorous levels as well as hyperkalemic treatment as well. She is very symptomatic also with her gastric bypass surgery. LABORATORY: White count stayed normal and was 5,700 with 62% neutrophils at discharge. Hemoglobin 9.6. Chemistries showed improvement of the potassium from 6.2 down to 4.5. BUN improved from 44 down to 35, creatinine from 3.53 down to 3.38. Glucose had spells down to 51 and was fasting about 202 on day of discharge. Osmolality 285, phosphorous was down from 6.5 to 5.3. Liver enzymes are within normal limits. Troponin was 0 during the hospital course. Albumin low at 2.7. Urinalysis showed pyuria with 1+ bacteruria with proteinuria and glycosuria noted. Toxicology showed no drug positive results and ethanol was 0. Cultures showed urine positive for Morganella morganii sensitive to ceftriaxone and Enterococcus faecalis which was sensitive to high dose ampicillin initiated after initial treatment with vancomycin was stopped because of potential nephrotoxicity. Nasal surveillance was negative for MRSA. RADIOLOGY: X-rays showed no acute abnormalities. CT head because of her altered level of consciousness showed no acute intracranial findings. Aortorenal ultrasound showed no significant evidence of renal artery stenosis. HOSPITAL COURSE: The patient was treated supportively with increasing dosings of antihypertensive to included increased dose of clonidine and hydralazine added to the beta blockade as well as calcium channel blockers. The patient will require additional days of IV parenteral therapy. Therefore, Swing Bed rehabilitation is required at least until the first of next week when she will have close followup with Dr. Finn. Physical therapy will also be required to help her because of her increased fall risk and strengthening is to continue during her rehab on Swing Bed. PAST MEDICAL HISTORY: 1. Hypertension. 2. Diverticulosis. 3. Gastroesophageal reflux disease. 4. Peptic ulcer disease. 5. Chronic renal failure stage IV. 6. Osteopenia. 7. Peripheral central neuropathies. 8. Iron deficiency anemia. PAST SURGICAL HISTORY: 1. Hernia repair in 1992. 2. Hysterectomy in 1991. 3. Toe amputation. 4. Cholecystectomy in 1997. 5. Tonsillectomy and adenoidectomy. 6. Bladder suspension. 7. Cataract removal on the right. 8. Previous surgical debridement of a wound on the foot. 9. Gastric bypass. HOME MEDICATIONS: 1. Lopressor 100 mg 1 twice daily. 2. Vitamin B2 50,000 units capsules weekly times 8 weeks and then daily after that. 3. Clonidine 0.1 mg b.i.d. 4. Zoloft 100 mg b.i.d. 5. Buspirone 15 mg tablets twice daily. 6. Sodium bicarbonate 325 mg 4 tablets twice daily. 7. Omeprazole extended release 40 mg one daily. 8. Gabapentin 300 mg tablets one 3 times a day. 9. Citracal maximum Vitamin D tablet 1 daily. 10. Robaxin 500 mg tablet one 3 times a day. 11. Tylenol with codeine #4, one b.i.d. 12. Fentanyl 25 mcg transdermal patch every 72 hours. FAMILY HISTORY: Father at age 76 secondary to diabetes and congestive heart failure. Mother from type 2 diabetes and hypertension. She has a sister that has diabetes, hypertension and congestive heart failure, and 2 sons that have hypertension. SOCIAL HISTORY: The patient is . She lives in [place]. She denies ever smoking but does note that she smokes as a social smoker when she is drinking, which is very infrequent. She does drink alcohol infrequently. Denies any illicit drug use. REVIEW OF SYSTEMS: CONSTITUTIONAL: Denies any previous fever or chills, but does not she has had some general malaise. HEENT: Notes that her right ear hurts and she has been seen previously by Dr. Finn and diagnosed with vertigo, and currently on [id number] treatment with Meclizine. RESPIRATORY: Denies any cough, congestion, shortness of breath. CARDIOVASCULAR: Denies any chest pains, palpitations or any previous syncopal episodes. GASTROINTESTINAL: Denies any constipation but notes that she has had some nausea since admission, but prior to admission was not reporting any nausea. She has had no diarrhea. GENITOURINARY: Denies any dysuria. Does have a history of chronic kidney disease and is followed by Dr. Finn. MUSCULOSKELETAL: Chronic back pain for which she takes Fentanyl for. NEUROLOGIC: As notes in the History of Present Illness, initially acute mental status change, but prior to this event denied any neurological changes other than some dizziness as noted with the vertigo. ENDOCRINE: Noted that she has had a history of diabetes in the past but no longer has a problem with it since she has had a gastric bypass. PLAN: The patient is to be admitted to Swing Bed on 04/29/17 to continue with physical therapy as well as continued parenteral IV antibiotics for a complete course of therapy to be completed by next Tuesday. She will be seen in the outpatient department at the [facility] by Dr. Finn next Tuesday , 05/04/17, at 10 AM. She will followup with Dr. Wilson in 7 to 10 days when possible. Please refer to home medications to be continued as well as the high dose ampicillin and ceftriaxone to be continued as listed in the record. Close followup as an outpatient after Swing Bed discharge after next week is encouraged. #[id number] [facility]
[2017-04-29] MEDS ORDERED: HYDROcodone 5MG/APAP 325MG 1 EA TAB PO PRN (17:28)
[2017-04-29] MEDS ORDERED: MAGNESIUM HYDROXIDE 30 ML UD PO PRN (17:28)
[2017-04-29] MEDS ORDERED: SODIUM PHOS/BIPHOS ENEMA ADULT 133 ML BTTL PR PRN (17:28)
[2017-04-29] MEDS ORDERED: METHOCARBAMOL 750 MG TAB PO PRN (17:34)
[2017-04-29] MEDS ORDERED: SUCRALFATE 1 GM/10 ML 1 GM UD PO PRN (17:51)
[2017-04-29] MEDS ORDERED: SODIUM CHLORIDE 0.9% 1000ML 1,000 ML IVS PRN (17:58)
[2017-04-29] MEDS ORDERED: fentaNYL PATCH 25 MCG/HR 1 EA PATCH TD SCH (18:00)
[2017-04-29] MEDS ORDERED: DEXTROSE 50% 25 GM/50 ML SYG IV PRN (18:04)
[2017-04-29] MEDS ORDERED: GLUCAGON INJ 1 MG VIAL SUBCU PRN (18:04)
[2017-04-29] MEDS ORDERED: AMPICILLIN SODIUM INJ 2 GM VIAL ONE (18:23)
[2017-04-29] MEDS: cloNIDine HCL 0.1 MG TAB PO SCH (18:27)
[2017-04-29] MEDS: AMPICILLIN INJ 2GM 2 GM in SODIUM CHL 0.9% 100ML MINI-BAG 100 ML IVPB SCH (18:28)
[2017-04-29] MEDS: LEVALBUTEROL NEBS 0.63 MG/3 ML VIAL NEB SCH ×2 (18:48→23:47)
[2017-04-29] MEDS ORDERED: cefTRIAXone SODIUM 1 GM VIAL ONE (19:40)
[2017-04-29] MEDS ORDERED: SODIUM CHL 0.9% 50ML MIN-BAG+ 50 ML IVPB ONE (19:40)
[2017-04-29] MEDS ORDERED: NYSTATIN POWDER 15GM BTTL TOP ONE (19:53)
[2017-04-29] MEDS: cefTRIAXone SODIUM 1 GM in SODIUM CHL 0.9% 50ML MIN-BAG+ 50 ML IVPB SCH (20:00)
[2017-04-29] MEDS: NYSTATIN POWDER 15GM BTTL TOP SCH (20:00)
[2017-04-29] MEDS: METOPROLOL TARTRATE 50 MG TAB PO SCH (20:48)
[2017-04-29] MEDS: BIFIDOBACTERIUM INFANTIS 4 MG CAP PO SCH (20:49)
[2017-04-29] MEDS: GABAPENTIN 300 MG CAP PO SCH (20:49)
[2017-04-29] MEDS: SERTRALINE HCL 50 MG TAB PO SCH (20:49)
[2017-04-29] MEDS: OMEPRAZOLE CAP 20 MG CAP PO SCH (20:49)
[2017-04-29] MEDS: busPIRone HCL 5 MG TAB PO SCH (20:49)
[2017-04-29] MEDS: SODIUM BICARBONATE 650 MG TAB PO SCH (20:50)
[2017-04-29] MEDS ORDERED: SODIUM BICARBONATE PO SCH (21:00)
[2017-04-29] MEDS ORDERED: BUSPIRONE HCL PO SCH (21:00)
[2017-04-29] MEDS ORDERED: NON-FORMULARY MEDICATION 1 EA MIS (Metoprolol Tartrate [Lopressor] 100 MG) PO SCH (21:00)
[2017-04-29] MEDS ORDERED: SERTRALINE HCL 100 MG PO SCH (21:00)
[2017-04-29] MEDS ORDERED: NON-FORMULARY MEDICATION 1 EA MIS (Omeprazole [Omeprazole] 40 MG) PO SCH (21:00)
[2017-04-29] MEDS: INSULIN LISPRO 100 UNITS/ML PEN SUBCU SCH (21:13)
[2017-04-30] MEDS ORDERED: SODIUM CHL 0.9% 100ML MINI-BAG 100 ML IVPB ONE ×3 (01:45→16:34)
[2017-04-30] MEDS ORDERED: AMPICILLIN SODIUM INJ 2 GM VIAL ONE ×3 (01:45→16:34)
[2017-04-30] MEDS: AMPICILLIN INJ 2GM 2 GM in SODIUM CHL 0.9% 100ML MINI-BAG 100 ML IVPB SCH ×3 (02:05→17:42)
[2017-04-30] MEDS: cloNIDine HCL 0.1 MG TAB PO SCH ×3 (02:06→17:41)
[2017-04-30] MEDS: INSULIN LISPRO 100 UNITS/ML PEN SUBCU SCH ×4 (07:06→21:18)
[2017-04-30] MEDS ORDERED: SODIUM CHLORIDE 0.9% (FLUSH) 10 ML SYG IV PRN (08:21)
[2017-04-30] MEDS: METOPROLOL TARTRATE 50 MG TAB PO SCH ×2 (08:47→17:41)
[2017-04-30] MEDS: LEVALBUTEROL NEBS 0.63 MG/3 ML VIAL NEB SCH ×2 (08:57→16:10)
[2017-04-30] MEDS: fentaNYL PATCH 25 MCG/HR 1 EA PATCH TD SCH (09:09)
[2017-04-30] MEDS: DOCUSATE SODIUM 100 MG CAP PO SCH (09:10)
[2017-04-30] MEDS: GABAPENTIN 300 MG CAP PO SCH ×3 (09:10→21:09)
[2017-04-30] MEDS: SODIUM BICARBONATE 650 MG TAB PO SCH ×2 (09:10→21:09)
[2017-04-30] MEDS: SERTRALINE HCL 50 MG TAB PO SCH ×2 (09:10→21:09)
[2017-04-30] MEDS: BIFIDOBACTERIUM INFANTIS 4 MG CAP PO SCH ×2 (09:10→21:08)
[2017-04-30] MEDS: busPIRone HCL 5 MG TAB PO SCH ×2 (09:10→21:08)
[2017-04-30] MEDS: ENOXAPARIN SODIUM 30 MG/0.3 ML SYG SUBCU SCH (09:11)
[2017-04-30] MEDS: REMOVE OLD PATCH TOP SCH (09:11)
[2017-04-30] MEDS: NYSTATIN POWDER 15GM BTTL TOP SCH ×4 (09:12→21:09)
[2017-04-30] MEDS ORDERED: SODIUM CHL 0.9% 50ML MIN-BAG+ 50 ML IVPB ONE (19:50)
[2017-04-30] MEDS ORDERED: cefTRIAXone SODIUM 1 GM VIAL ONE (19:51)
[2017-04-30] MEDS: cefTRIAXone SODIUM 1 GM in SODIUM CHL 0.9% 50ML MIN-BAG+ 50 ML IVPB SCH (20:12)
[2017-04-30] MEDS: OMEPRAZOLE CAP 20 MG CAP PO SCH (21:11)
[2017-05-01] MEDS ORDERED: SODIUM CHL 0.9% 100ML MINI-BAG 100 ML IVPB ONE ×4 (01:14→20:16)
[2017-05-01] MEDS ORDERED: AMPICILLIN SODIUM INJ 2 GM VIAL ONE ×4 (01:14→20:15)
[2017-05-01] MEDS: cloNIDine HCL 0.1 MG TAB PO SCH ×3 (01:37→18:05)
[2017-05-01] MEDS: AMPICILLIN INJ 2GM 2 GM in SODIUM CHL 0.9% 100ML MINI-BAG 100 ML IVPB SCH ×3 (01:38→18:05)
[2017-05-01] MEDS ORDERED: LEVALBUTEROL NEBS 0.63 MG/3 ML VIAL NEB SCH (08:00)
[2017-05-01] MEDS: METOPROLOL TARTRATE 50 MG TAB PO SCH ×2 (08:26→18:06)
[2017-05-01] MEDS: INSULIN LISPRO 100 UNITS/ML PEN SUBCU SCH ×4 (08:26→21:09)
[2017-05-01] MEDS: SODIUM BICARBONATE 650 MG TAB PO SCH ×2 (08:27→21:07)
[2017-05-01] MEDS: BIFIDOBACTERIUM INFANTIS 4 MG CAP PO SCH ×2 (08:27→21:07)
[2017-05-01] MEDS: GABAPENTIN 300 MG CAP PO SCH ×3 (08:27→21:08)
[2017-05-01] MEDS: DOCUSATE SODIUM 100 MG CAP PO SCH ×2 (08:27)
[2017-05-01] MEDS: busPIRone HCL 5 MG TAB PO SCH ×2 (08:27→21:07)
[2017-05-01] MEDS: ENOXAPARIN SODIUM 30 MG/0.3 ML SYG SUBCU SCH (08:28)
[2017-05-01] MEDS: SERTRALINE HCL 50 MG TAB PO SCH ×2 (08:28→21:07)
[2017-05-01] MEDS: NYSTATIN POWDER 15GM BTTL TOP SCH ×4 (08:28→21:09)
[2017-05-01] MEDS: LEVALBUTEROL NEBS 0.63 MG/3 ML VIAL NEB SCH ×3 (08:45→20:31)
--- NOTE | 2017-05-01 08:59 | PCM.CORE ---
Physician DVT/VTE - Prophylaxis Currently: Patient already on anticoagulation therapy - Nurse DVT Assessment & Total Each Risk Factor Represents 1 Point: Age 41-60 Each Risk Factor is 1 Point: Obesity (BMI >25) DVT Assessment Score: 2 - 2 Moderate Risk Treatments: Sequential Compression Device
--- NOTE | 2017-05-01 12:33 | PN ---
DATE: 05-01-17 SUBJECTIVE: The patient is just receiving another dose of antibiotics. She was feeling improved today, yet will still require a couple of additional days of the special parenteral treatment for the enterococcus urinary tract infection. She is up walking and seems to be tolerating it quite well. OBJECTIVE: VITAL SIGNS: Afebrile. Pulse 63, blood pressure 158/76, room air saturation 97 %. Weight 71.9 kg. LUNGS are generally clear. HEART tones regular. ABDOMEN is soft with fairly good bowel tones. LABORATORY STUDIES: Fasting blood sugar of 158 earlier this morning. ASSESSMENT: 1. Significant hypertensive crises showing some improvement with the addition of extra antihypertensive medication. 2. Significant urinary tract infection with cultures showing a resistant enterococcus faecalis as well Morganella morganii, treated with ceftriaxone as well as high dose ampicillin for the enterococcus faecalis parenterally, having stopped the vancomycin and requiring a few more days of additional treatment to insure eradication. . 3. Significant chronic renal failure with an acute exacerbation with followups necessary. 4. Acute metabolic acidosis on admission showing improvement. 5. Altered level of consciousness, probably secondary to the urinary tract infection, showing improvement. 6. Hyperkalemia improved. 7. History of gastroesophageal reflux disease. 8. History of peptic ulcer disease. 9. History of gastric bypass surgery with some symptoms currently noted and improving. 10. History of chest pain with negative cardiac enzymes with no evidence of underlying ischemic coronary disease acutely noted. 11. Chronic anemia with a microcytic/hypochromic presentation possibly secondary to chronic kidney disease. 12. History of diverticulosis. PLAN: Continue the parenteral antibiotic therapy for the multi organism uterosacral per culture and sensitivity results. Repeat lab studies on Tuesday with anticipation of discharge on Tuesday after completion of a parenteral course of therapy for the urinary tract infection and then see Dr. Finn in the dialyses center on Tuesday with laboratory studies in hand that have been performed on Tuesday for specific followup. Encourage increased activity today. [facility][id number] [facility]
[2017-05-01] MEDS ORDERED: cefTRIAXone SODIUM 1 GM VIAL ONE (19:44)
[2017-05-01] MEDS ORDERED: SODIUM CHL 0.9% 50ML MIN-BAG+ 50 ML IVPB ONE (19:44)
[2017-05-01] MEDS: cefTRIAXone SODIUM 1 GM in SODIUM CHL 0.9% 50ML MIN-BAG+ 50 ML IVPB SCH (19:47)
[2017-05-01] MEDS: OMEPRAZOLE CAP 20 MG CAP PO SCH (21:07)
[2017-05-02] MEDS: AMPICILLIN INJ 2GM 2 GM in SODIUM CHL 0.9% 100ML MINI-BAG 100 ML IVPB SCH ×3 (02:24→18:29)
[2017-05-02] MEDS: cloNIDine HCL 0.1 MG TAB PO SCH ×3 (02:25→18:29)
[2017-05-02] MEDS: INSULIN LISPRO 100 UNITS/ML PEN SUBCU SCH ×4 (07:28→21:27)
[2017-05-02] MEDS ORDERED: AMPICILLIN SODIUM INJ 2 GM VIAL ONE ×3 (07:31→19:31)
[2017-05-02] MEDS ORDERED: SODIUM CHL 0.9% 100ML MINI-BAG 100 ML IVPB ONE ×3 (07:32→19:31)
[2017-05-02] MEDS: METOPROLOL TARTRATE 50 MG TAB PO SCH ×2 (08:00→16:53)
[2017-05-02] MEDS: LEVALBUTEROL NEBS 0.63 MG/3 ML VIAL NEB SCH ×3 (08:09→20:35)
[2017-05-02] MEDS: BIFIDOBACTERIUM INFANTIS 4 MG CAP PO SCH ×2 (08:57→21:26)
[2017-05-02] MEDS: SODIUM BICARBONATE 650 MG TAB PO SCH ×2 (08:57→21:27)
[2017-05-02] MEDS: GABAPENTIN 300 MG CAP PO SCH ×3 (08:57→21:26)
[2017-05-02] MEDS: busPIRone HCL 5 MG TAB PO SCH ×2 (08:57→21:26)
[2017-05-02] MEDS: SERTRALINE HCL 50 MG TAB PO SCH ×2 (08:57→21:28)
[2017-05-02] MEDS: NYSTATIN POWDER 15GM BTTL TOP SCH ×4 (08:58→21:29)
[2017-05-02] MEDS: DOCUSATE SODIUM 100 MG CAP PO SCH (08:58)
[2017-05-02] MEDS: ENOXAPARIN SODIUM 30 MG/0.3 ML SYG SUBCU SCH (08:58)
[2017-05-02] MEDS ORDERED: SUCRALFATE 1 GM TAB PO ONE (10:22)
[2017-05-02] MEDS: SUCRALFATE 1 GM TAB PO SCH ×3 (11:17→21:26)
[2017-05-02] MEDS ORDERED: SODIUM CHL 0.9% 50ML MIN-BAG+ 50 ML IVPB ONE (19:27)
[2017-05-02] MEDS ORDERED: cefTRIAXone SODIUM 1 GM VIAL ONE (19:27)
[2017-05-02] MEDS: cefTRIAXone SODIUM 1 GM in SODIUM CHL 0.9% 50ML MIN-BAG+ 50 ML IVPB SCH (19:53)
[2017-05-02] MEDS: OMEPRAZOLE CAP 20 MG CAP PO SCH (21:27)
--- NOTE | 2017-05-02 22:23 | PN ---
DATE: 05/02/17 SUPERVISING PHYSICIAN: Mumtaz Mckay M.D. SUBJECTIVE: The patient is progressing well through her physical therapy efforts. Her blood pressure has been well controlled. She remains afebrile. She is tolerating antibiotic therapy. She has not had any nausea, vomiting or diarrhea. OBJECTIVE: VITAL SIGNS: She remains afebrile, temperature 98.4, pulse 68, blood pressure 159/79, respirations 16, satting 97% on room air. I's and O's are fairly well balanced with a negative balance of 830. Weight is 72.1 kg. CHEST: Clear to auscultation. HEART: Regular rate and rhythm. ABDOMEN: Soft, non-tender. Positive bowel sounds. EXTREMITIES: No clubbing, cyanosis or edema. NEUROLOGIC: She is alert and oriented times three. LABORATORY: Blood sugars have been remaining fairly well controlled ranging from 98 to 189. ASSESSMENT: 1. Previous hypertensive crisis on acute care showing improvement with the addition of extra antihypertensive medications and continues to be controlled. 2. Significant urinary tract infection with cultures showing a resistant Enterococcus faecalis as well as a Morganella morganii being treated with Ceftriaxone as well as high dose Ampicillin for the Enterococcus faecalis. 3. Significant chronic renal failure with acute exacerbation requiring followup. 4. Acute metabolic acidosis on Acute Care showing improvement prior to discharge. 5. Altered level of consciousness probably secondary to urinary tract infection showing improvement. 6. Hyperkalemia, resolved. 7. History of gastroesophageal reflux disease. 8. History of peptic ulcer disease. 9. History of gastric bypass surgery. 10. History of chest pains with negative cardiac enzymes with no evidence of underlying ischemic coronary disease noted. 11. Chronic anemia with microcytic hypochromic presentation felt to be secondary to Chronic kidney disease. 12. History of diverticulosis. PLAN: Will continue with antibiotic therapy as based off culture results. Anticipate possible discharge tomorrow as she has an appointment to see Dr. Finn on Tuesday. She will need laboratory studies to include a CBC and a BMP prior to discharge in order to have followup with Dr. Finn. Will continue to follow the patient as she continues with physical therapy and until discharge treat appropriately. [facility][id number] [facility]
[2017-05-03] MEDS: AMPICILLIN INJ 2GM 2 GM in SODIUM CHL 0.9% 100ML MINI-BAG 100 ML IVPB SCH ×2 (02:07→10:20)
[2017-05-03] MEDS: cloNIDine HCL 0.1 MG TAB PO SCH ×2 (02:08→08:30)
[2017-05-03] MEDS: SUCRALFATE 1 GM TAB PO SCH ×2 (06:24→11:23)
[2017-05-03] MEDS ORDERED: SODIUM CHL 0.9% 100ML MINI-BAG 100 ML IVPB ONE (08:15)
[2017-05-03] MEDS ORDERED: AMPICILLIN SODIUM INJ 2 GM VIAL ONE (08:15)
[2017-05-03] MEDS: INSULIN LISPRO 100 UNITS/ML PEN SUBCU SCH ×2 (08:29→11:22)
[2017-05-03] MEDS: BIFIDOBACTERIUM INFANTIS 4 MG CAP PO SCH (08:30)
[2017-05-03] MEDS: GABAPENTIN 300 MG CAP PO SCH (08:33)
[2017-05-03] MEDS: ENOXAPARIN SODIUM 30 MG/0.3 ML SYG SUBCU SCH (08:33)
[2017-05-03] MEDS: fentaNYL PATCH 25 MCG/HR 1 EA PATCH TD SCH (08:33)
[2017-05-03] MEDS: SERTRALINE HCL 50 MG TAB PO SCH (08:34)
[2017-05-03] MEDS: METOPROLOL TARTRATE 50 MG TAB PO SCH (08:34)
[2017-05-03] MEDS: SODIUM BICARBONATE 650 MG TAB PO SCH (08:35)
[2017-05-03] MEDS: busPIRone HCL 5 MG TAB PO SCH (08:35)
[2017-05-03] MEDS: REMOVE OLD PATCH TOP SCH (08:35)
[2017-05-03] MEDS: DOCUSATE SODIUM 100 MG CAP PO SCH ×2 (08:44)
[2017-05-03] MEDS: NYSTATIN POWDER 15GM BTTL TOP SCH (08:44)
[2017-05-03] MEDS: LEVALBUTEROL NEBS 0.63 MG/3 ML VIAL NEB SCH (09:20)
[2017-05-03 10:26] VITALS: BP 198/85; TEMP 96.8; O2SAT 96
--- NOTE | 2017-05-09 14:57 | DS ---
SUPERVISING PHYSICIAN: Mumtaz Mckay MD DISCHARGE DIAGNOSIS: 1. Previous hypertensive crisis on Acute Care, showing improvement with the addition of extra antihypertensive medications and continues to be stable and controlled. 2. Significant urinary tract infection with cultures showing a resistant Enterococcus faecalis as well as a Morganella morganii, being treated with ceftriaxone as well as high dose ampicillin for the Enterococcus faecalis. 3. Significant chronic renal failure with acute exacerbation requiring followup, showing improvement. 4. Acute metabolic acidosis on Acute Care, showing improvement prior to discharge. 5. Altered level of consciousness, probably secondary to urinary tract infection, showing improvement. 6. Hyperkalemia, resolved. 7. History of gastroesophageal reflux disease. 8. History of peptic ulcer disease. 9. History of gastric bypass surgery. 10. History of chest pains with negative cardiac enzymes with no evidence of underlying ischemic coronary disease. 11. Chronic anemia with microcytic/hypochromic presentation, felt to be secondary to chronic kidney disease. 12. History of diverticulosis. HISTORY OF PRESENT ILLNESS: Ms. Gillespie is a 56-year-old, female patient who was found poorly responsive by family members and brought to the Emergency Room. She had a history of chronic renal failure with an acute exacerbation, evidence of a urinary tract infection with a febrile illness, temperature of 101.1, and significant hypertensive response to the illness continued for many days. Her kidney failure was treated under Dr. Finn's direction to assist with the metabolic improvement which also assisted the metabolic acidosis as well as lowering the elevated phosphorous levels as well as hyperkalemic treatment as well. She was very symptomatic also with her gastric bypass surgery. She was treated supportively with increasing doses of antihypertensive medicines on Acute Care which included clonidine, hydralazine, as well as added beta blockade as well as calcium channel blockers. The patient required additional days of IV parenteral therapy for the significant urinary tract infection as noted above. Therefore, the patient was admitted to [facility] for rehabilitation and close clinical followup. She was a high risk for falls and needed strengthening as well, and thus needed physical therapy on Swing [facility]. LABORATORY: On admission to [facility], CBC showed white count 7.6, hemoglobin 9.5, hematocrit 30.0, platelet count 243,000, differential within normal limits. Chemistries on 05/03/17 showed normal electrolytes, BUN 36, creatinine 3.07, glucoses ranged from 84 to 241. Urinalysis on Swing Bed admission 100 protein, trace leukocyte esterase with RBCs 0, WBCs 5 to 10, epithelial cells to 10 with 1+ bacteria. MICROBIOLOGY: No additional microbiology specimens were submitted. RADIOLOGY: No radiographic studies were submitted for review. HOSPITAL COURSE: Ms. Gillespie was admitted to [facility] as noted above and did well through physical therapy. She continued with IV antibiotic therapy to completion prior to discharge from Swing [facility]. She was continued on amoxicillin as well as ceftriaxone. She finished the course of ceftriaxone for treatment of Morganella and continued with ampicillin for treatment of the Enterococcus. On the day of discharge, it was felt she had physically improved and was stable enough to be discharged home safely to continue with treatment with oral medications. She was discharged in stable condition. PLAN: Ms. Gillespie was discharged on 05/03/17 from [facility] to have close clinical followup with Dr. Wilson on 05/16/17 at 10:45 AM. She was to start new medications as instructed and return to the hospital if her condition failed to improve or if she had any other concerning symptoms. At discharge, prescriptions included: 1. Amoxicillin 1000 mg twice daily, #10. 2. Colace 100 mg daily, #9. 3. Hydralazine 50 mg 3 times a day, #60. 4. Nystatin powder as directed. 5. Prilosec 40 mg daily, 20 mg tablets. All other medications continued as prior to this admission. Diet at discharge was diabetic diet as tolerated. Activities to increase as tolerated. Condition at discharge was stable and improved. [facility][id number] [facility]
== END 2017-05-03 12:59 | disposition home or self-care (01) | DRG 690 ==
LOC: UNDOADMIN 11:30 → MS 11:30 → UNDODISIN 05-03 12:59
PROVIDERS: ADMIT Emergency Medicine; ATTEND Nurse Practitioner Family
DX: N39.0 Urinary tract infection, site not specified (principal); I16.9 Hypertensive crisis, unspecified; N18.4 Chronic kidney disease, stage 4 (severe); I12.9 Hypertensive chronic kidney disease with stage 1 through stage 4 chronic kidney disease, or unspecified chronic kidney disease; D63.1 Anemia in chronic kidney disease; D50.9 Iron deficiency anemia, unspecified; G62.9 Polyneuropathy, unspecified; M85.80 Other specified disorders of bone density and structure, unspecified site; G89.29 Other chronic pain; M54.9 Dorsalgia, unspecified; Z86.39 Personal history of other endocrine, nutritional and metabolic disease; K57.30 Diverticulosis of large intestine without perforation or abscess without bleeding; B95.2 Enterococcus as the cause of diseases classified elsewhere; B96.89 Other specified bacterial agents as the cause of diseases classified elsewhere; Z98.84 Bariatric surgery status; Z16.30 Resistance to unspecified antimicrobial drugs; Z87.11 Personal history of peptic ulcer disease; Z79.891 Long term (current) use of opiate analgesic; Z79.899 Other long term (current) drug therapy

== ENCOUNTER → 2017-05-30 | Outpatient (CLI) | payer MEDICARE, BC | END | disposition home or self-care (01) | LOC: GMA 18:14 | PROVIDERS: ATTEND Nurse Practitioner Acute Care | DX: N39.0 Urinary tract infection, site not specified (principal) ==

== ENCOUNTER → 2017-06-22 | Outpatient (CLI) | payer MEDICARE, BC | END | disposition home or self-care (01) | LOC: GMAJ 10:35 | PROVIDERS: ATTEND Family Medicine | DX: N18.4 Chronic kidney disease, stage 4 (severe) (principal) ==

== ENCOUNTER → 2017-07-25 | Outpatient (CLI) | payer MEDICARE, BC | END | disposition home or self-care (01) | LOC: GMAJ 12:59 | PROVIDERS: ATTEND Family Medicine | DX: N18.4 Chronic kidney disease, stage 4 (severe) (principal) ==

== ENCOUNTER → 2017-08-24 | Outpatient (CLI) | payer MEDICARE, BC | END | disposition home or self-care (01) | LOC: LAB.O 15:27 | PROVIDERS: ATTEND Internal Medicine Nephrology | DX: N18.1 Chronic kidney disease, stage 1 (principal); D63.1 Anemia in chronic kidney disease ==

== ENCOUNTER → 2017-09-13 | Outpatient (CLI) | payer MEDICARE, BC | END | disposition home or self-care (01) | LOC: GMA 20:27 | PROVIDERS: ATTEND Nurse Practitioner Family | DX: N39.0 Urinary tract infection, site not specified (principal) ==

== ENCOUNTER → 2017-10-19 | Outpatient (CLI) | payer MEDICARE, BC | END | disposition home or self-care (01) | LOC: GMAJ 12:15 | PROVIDERS: ATTEND Family Medicine | DX: N18.4 Chronic kidney disease, stage 4 (severe) (principal) ==

== ENCOUNTER → 2017-11-09 | Outpatient (CLI) | payer MEDICARE, BC | LOC: GMAJ 17:08 | PROVIDERS: ATTEND Family Medicine | DX: R30.0 Dysuria (principal) ==

== ENCOUNTER → 2017-11-21 | Outpatient (CLI) | payer MEDICARE, BC | LOC: GMAJ 14:36 | PROVIDERS: ATTEND Family Medicine | DX: D64.9 Anemia, unspecified (principal); D63.1 Anemia in chronic kidney disease ==

== ENCOUNTER → 2018-02-15 | Outpatient (CLI) | payer MEDICARE, BC | LOC: GMAJ 09:48 | PROVIDERS: ATTEND Family Medicine | DX: N18.4 Chronic kidney disease, stage 4 (severe) (principal) ==

== ENCOUNTER → 2018-06-14 | Outpatient (CLI) | payer MEDICARE, BC | LOC: BFHH 15:10 | PROVIDERS: ATTEND Family Medicine | DX: N39.0 Urinary tract infection, site not specified (principal) ==

== ENCOUNTER → 2018-07-04 | Outpatient (CLI) | payer MEDICARE, BC | LOC: GMAJ 14:49 | PROVIDERS: ATTEND Family Medicine | DX: N39.0 Urinary tract infection, site not specified (principal) ==

== ENCOUNTER → 2018-07-12 | Outpatient (CLI) | payer MEDICARE, BC ==
--- NOTE | 2018-07-12 17:33 | RAD ---
Procedure: XR ABDOMEN 1 VIEW (KUB) Exam Date: 07/12/2018 Ordering Provider: SHERRI FINK Clinical Indication: RENAL STONES Comparison: 01/03/2017 Findings: There are sutures projecting over the left hemiabdomen. Nonobstructive bowel gas pattern. Large stool burden in the right and transverse colon. There are no suspicious calcifications. There is no acute osseous abnormality. Vascular calcifications. Impression: 1. No urinary tract calcifications identified. 2. Large stool burden in the right and transverse colon. Electronically signed by: Fabrice Muñiz MD 07/12/2018 5:32 PM CDT
== END ==
LOC: RAD 13:48
PROVIDERS: ATTEND Urology
DX: N20.0 Calculus of kidney (principal)

== ENCOUNTER → 2018-08-03 | Outpatient (CLI) | payer MEDICARE, BC | LOC: GMAJ 14:02 | PROVIDERS: ATTEND Family Medicine | DX: R30.9 Painful micturition, unspecified (principal) ==

== ENCOUNTER → 2018-12-25 | Outpatient (CLI) | payer MEDICARE, BC | LOC: GMAJ 11:00 | PROVIDERS: ATTEND Family Medicine | DX: N18.4 Chronic kidney disease, stage 4 (severe) (principal) ==

== ENCOUNTER → 2019-01-17 | Outpatient (CLI) | payer MEDICARE, BC ==
--- NOTE | 2019-01-17 17:13 | US ---
EXAM DESCRIPTION: Bladder: ULTRASOUND. CLINICAL HISTORY: 58 years Female URGE INCONTINENCE COMPARISON: MRI lumbar spine 12/13/2018. TECHNIQUE: Transcutaneous scanning: Javier-scale and Doppler modes. FINDINGS: Prevoid bladder dimensions 5.5 x 6.2 x 8.6 cm for a volume of 156.3 mL. Doppler evaluation for bilateral ureteral jets was not performed. Post void measurements 5.8 x 3.6 x 3.2 cm for an estimated volume of 35.1 mL. Micturition volume 121.2. Patient voided approximately 77% of initial volume. No gross masses in the urinary bladder, and no large diverticula. IMPRESSION: Post void residual urine volume was 35.1 mL. Approximately 23% of initial volume. Electronically signed by: Solo Mcwilliams MD 01/17/2019 5:10 PM CDT
== END ==
LOC: US 09:29
PROVIDERS: ATTEND Family Medicine
DX: N39.41 Urge incontinence (principal)

== ENCOUNTER → 2019-02-15 | Outpatient (CLI) | payer MEDICARE, BC ==
--- NOTE | 2019-02-16 08:22 | MRI ---
EXAM DESCRIPTION: Cervical Spine CLINICAL HISTORY: RADICULOPATHY COMPARISON: 03/14/2017 TECHNIQUE: MRI of the cervical spine is performed according to our usual protocol. FINDINGS: Straightening of the normal cervical lordosis. Vertebral body stature is maintained. There is no acute fracture or destructive osseous lesion. Craniocervical junction is unremarkable. Flattening of the ventral aspect of the spinal cord at C5-C6 due to disc disease. No abnormal cord signal. C2-3: Mild left greater than right uncovertebral spurring and mild left facet hypertrophy. Mild left neural foraminal stenosis again demonstrated. The spinal canal and right neural foramen are patent. C3-4: Disc desiccation with mild disc narrowing. Mild uncovertebral spurring. 1.5 mm disc osteophyte complex. Moderate left and mild right neural foraminal stenosis. The findings are minimally progressed since the prior exam. The spinal canal remains patent. C4-5: Disc desiccation. Moderate left and mild right facet hypertrophy with mild uncovertebral spurring. 2 mm disc osteophyte complex with central disc protrusion. Mild to moderate bilateral foraminal stenosis which is slightly progressed since the prior exam. The spinal canal remains patent. C5-6: Disc desiccation with severe disc narrowing. Mild facet hypertrophy and mild uncovertebral spurring. 4.5 mm broad-based central disc protrusion with moderate spinal canal stenosis. Material contacts and flattens the ventral aspect of the spinal cord. Residual AP diameter the thecal sac is 6.8 mm. Moderate bilateral neural foraminal stenosis. The findings are significantly progressed since the prior exam. C6-7: Disc desiccation with mild disc narrowing. Mild facet hypertrophy and mild uncovertebral spurring. 3 mm disc bulge and central disc protrusion. Mild to moderate spinal canal stenosis. Residual AP diameter the thecal sac is 7.5 mm. Mild left greater than right neural foraminal stenosis. C7-T1: No significant findings. IMPRESSION: 1. Multilevel spondylitic and facet degenerative changes in the cervical spine. The findings have progressed since the prior exam. At C5-C6, there is moderate spinal canal stenosis and moderate bilateral foraminal stenosis. 2. At C6-C7, there is [id number] spinal canal stenosis and mild left greater than right neural foraminal stenosis. 3. Other levels as detailed above. Electronically signed by: Duncan Mock MD 02/16/2019 8:20 AM CDT
== END ==
LOC: MRI 11:00
PROVIDERS: ATTEND Physical Medicine & Rehabilitation
DX: M47.22 Other spondylosis with radiculopathy, cervical region (principal); M48.02 Spinal stenosis, cervical region

== ENCOUNTER 2019-09-26 18:37 | Emergency (ER) | payer MEDICARE, BC ==
[2019-09-26] MEDS: HYDROmorphone HCL INJ 2 MG/ML VIAL IV ONE ×2 (19:30→20:30)
[2019-09-26] MEDS: SODIUM CHLORIDE 0.9% (FLUSH) 10 ML SYG IV PRN (19:31)
[2019-09-26] MEDS: ONDANSETRON INJ 4 MG/2 ML VIAL IV ONE (19:32)
--- NOTE | 2019-09-26 20:03 | ED.PDOC ---
History of Present Illness - General Chief Complaint: Abdominal Pain Stated Complaint: abdominal pain,vomiting Time Seen by Provider: 09/26/19 18:54 Information Source: patient, RN notes reviewed, Vital Signs reviewed, other - patient's preacher Exam Limitations: no limitations - History of Present Illness Initial Comments: patient presents with complaints of abdominal pain that started yesterday and have worsened since then. The pain is aching and cramping in nature. It is diffuse throughout the abdomen. It is 8 out of 10. Worse with movement or palpation. Nothing makes it better. Patient has been performing daily peritoneal dialysis without difficulty. Patient denies any fever or chills. Abdominal Pain Onset Location: generalized abdomen Pain Radiation: no radiation Quality: severe, cramping, dull, steady, stabbing Timing/Duration: 24 hours Improving Factors: nothing Worsening Factors: movement Associated Symptoms: swelling/mass in abdomen Review of Systems - Review of Systems Constitutional: States: see HPI, chills EENTM: States: no symptoms reported Respiratory: States: no symptoms reported Cardiology: States: no symptoms reported Gastrointestinal/Abdominal: States: see HPI, abdominal pain Genitourinary: States: no symptoms reported Musculoskeletal: States: no symptoms reported Skin: States: no symptoms reported Neurological: States: no symptoms reported Endocrine: States: no symptoms reported Hematologic/Lymphatic: States: no symptoms reported All other Systems: Reviewed and Negative Past Medical History (General) - Patient Medical History Hx Seizures: No Hx Stroke: No Hx Asthma: No Hx of COPD: No Hx Congestive Heart Failure: No Hx Pacemaker: No Hx Hypertension: Yes Hx Diabetes: No Hx Renal Disease: Yes Hx MRSA: Yes MRSA Source:: Blood Surgical History: cholecystectomy, Hysterectomy - Vaccination History Hx Influenza Vaccination: Yes Hx Pneumococcal Vaccination: Yes - Social History Hx Tobacco Use: No Hx Alcohol Use: No Hx Substance Use: No Hx Substance Use Treatment: No Hx Depression: No Hx Physical Abuse: No Hx Emotional Abuse: No - Female History Patient : No Family Medical History - Family History Father Living Status: Age at (years of age): 78 Hx Family Asthma: No Hx Family Congestive Heart Failure: Yes Hx Family Hypertension: Yes Hx Family Stroke: No Hx Cardiac Disease: Yes Hx Family Diabetes: Yes Hx Family Cancer: No Mother Family History: No Known Living Status: Age at (years of age): 84 Hx Family Asthma: No Hx Family Congestive Heart Failure: Yes Hx Family Hypertension: Yes Hx Family Stroke: No Hx Cardiac Disease: Yes Hx Family Diabetes: Yes Hx Family Cancer: No Physical Exam - Physical Exam General Appearance: Agitated, Alert, Anxious, Obvious distress, Well Developed, Well Hydrated, Well Nourished Eyes, Ears, Nose, Throat Exam: PERRL/EOMI, normal ENT inspection, pharynx normal Neck: non-tender, full range of motion, supple, normal inspection Respiratory: chest non-tender, lungs clear, normal breath sounds, no respiratory distress, no accessory muscle use Cardiovascular/Chest: normal peripheral pulses, regular rate, rhythm, no edema, no gallop, no JVD, no murmur Peripheral Pulses: No deficit Gastrointestinal/Abdominal: normal bowel sounds, soft, no pulsatile mass, guarding, tenderness - generalized Back Exam: normal inspection, no CVA tenderness, no vertebral tenderness Extremity: normal range of motion, non-tender, other - left lower blanco with a healing wound Neurologic: binding stitcher II-XII nml as tested, no motor/sensory deficits, alert, normal mood/affect, oriented x 3 Skin Exam: normal color, warm/dry Lymphatic: no adenopathy Special Observations: C/O out of proportion Progress - Progress Progress: differential diagnosis: UTI, bowel obstruction, spontaneous activity of peritonitis, bowel perforation among others. 09/26/19 21:17 Patient with continued abdominal pain and a white count. Primary wood mechanist, Dr. Finn, agree with diagnosis of spontaneous bacterial peritonitis. Plan infusion of vancomycin and gentamicin into her peritoneal dialysis port and admission to in a [facility] hospital. I've discussed the plan of care with the patient she voices understanding and agreement. Eriberto Pérez M.D. [id number] - Results/Orders Results/Orders: 09/26/19 18:55 IV Care:Saline Lock per Protoc QSHIFT Sodium Chloride 0.9% (Flush) [Saline Flush Syringe] 10 ml IV PRN PRN URINALYSIS Stat 09/26/19 19:00 EKG STAT 09/26/19 19:40 BLOOD CULTURE Stat 09/26/19 20:00 CELL COUNT/DIFF,PERITONEAL FLD Stat BODY FLUID CULTURE Stat 09/26/19 21:02 Gentamicin Premix 80Mg/100Ml 80 mg Premix Bag 1 bag IVPB ONCE 09/26/19 21:03 Vancomycin HCl Inj 1,000 mg Sodium Chloride 0.9% 250Ml [NS 250ml] 250 ml IVPB ONCE Laboratory Results - last 24 hr 09/26/19 09/26/19 19:40 19:40 WBC 14.6 H RBC 3.78 L Hgb 10.3 L Hct 32.2 L MCV 85.4 MCH 27.2 MCHC 31.8 L RDW 15.3 H Plt Count 441 H MPV 7.4 Absolute Neuts (auto) 13.40 H Absolute Lymphs (auto) 0.70 L Absolute Monos (auto) 0.30 Absolute Eos (auto) 0.00 Absolute Basos (auto) 0.10 Neutrophils % 92.0 H Lymphocytes % 5.1 L Monocytes % 2.3 Eosinophils % 0.0 L Basophils % 0.6 Sodium 136 Potassium 3.5 L Chloride 99 L Carbon Dioxide 26 Anion Gap 14.5 BUN 28 H Creatinine 4.61 H BUN/Creatinine Ratio 6.1 L Random Glucose 151 H Serum Osmolality 280.3 Calcium 7.1 L Total Bilirubin 0.2 Direct Bilirubin 0.1 Indirect Bilirubin 0.1 L AST 29 ALT 29 Alkaline Phosphatase 94 Serum Total Protein 4.8 L Albumin 1.4 L* Lipase 21 L Departure - Departure Clinical Impression: Spontaneous bacterial peritonitis, Abdominal pain Leukocytosis Qualifiers: Leukocytosis type: unspecified Qualified Code(s): D72.829 - Elevated white blood cell count, unspecified Time of Disposition: 21:33 Disposition: Transfer to Hospital Condition: Fair Departure Forms: ED Discharge - Pt. Copy, Patient Portal Self Enrollment Referrals: Jose M Wilson MD [Primary Care Provider] - 1-2 Weeks Home Medications: Ambulatory Orders Acetaminophen W/ Codeine [Tylenol/Codeine #4] 1 tab PO BID 12/21/13 Omeprazole 40 mg PO HS 12/21/13 Sertraline HCl [Zoloft] 100 mg PO BID 12/21/13 fentaNYL PATCH 25 MCG/HR [Duragesic Patch 25 MCG/HR] 25 mcg TD Q72H 12/21/13 Buspirone HCl 1 tablet PO BID 04/23/17 Calcium Citrate-Vitamin D [Citracal + D3 Maximum 315-250 mg-Unit] 1 tab PO DAILY 04/23/17 Docusate Sodium [Stool Softener] 200 mg PO KATHERINE-OTH-DAY 04/23/17 Gabapentin 300 mg PO TID 04/23/17 Meclizine HCl [Meclizine 25] 25 mg PO TID PRN 04/23/17 Methocarbamol [Robaxin] 500 mg PO BID 04/23/17 Metoprolol Tartrate [Lopressor] 100 mg PO BID 04/23/17 Sodium Bicarbonate (Antacid) [Sodium Bicarbonate] 4 tablet PO BID 04/23/17 Bifidobacterium Infantis [Align] 4 mg PO DAILY 04/29/17 Clonidine HCl 0.3 mg PO Q8H #0 04/29/17 Enoxaparin Sodium [Lovenox] 30 mg SUBCU DAILY 04/29/17 Sucralfate Suspension [Carafate Suspension] 1 gm PO 0700,1000,1500,2100 PRN 04/29/17 Amoxicillin [Amoxil] 1,000 mg PO BID #10 cap 05/03/17 Docusate Sodium [Colace] 100 mg PO DAILY 05/03/17 Hydralazine HCl 50 mg PO TID #60 tab 05/03/17 Nystatin Powder 1 applic TOP QID 05/03/17 Omeprazole [Prilosec Cap] 40 mg PO BEDTIME 05/03/17 Transfer to Outside Facility - Transfer Information Decision to Transfer Date: 09/26/19 Decision to Transfer Time: 21:25 Reason for Transfer: required specialist not available Accepting Provider:: Accepting Facility: [facility]
[2019-09-26] MEDS ORDERED: VANCOMYCIN HCL INJ 1,000 MG VIAL IVPB ONE (21:06)
[2019-09-26] MEDS ORDERED: SODIUM CHLORIDE 0.9% 250ML 250 ML ONE (21:06)
[2019-09-26] MEDS ORDERED: GENTAMICIN PREMIX 80MG/100ML 100 ML IVPB ONE (21:08)
[2019-09-26] MEDS: GENTAMICIN IVPB ONE (21:13)
[2019-09-26] MEDS: VANCOMYCIN HCL INJ 1,000 MG in SODIUM CHLORIDE 0.9% 250ML 250 ML IVPB ONE (21:19)
[2019-09-26 21:38] VITALS: BP 153/80; TEMP 97.2; O2SAT 97
== END 2019-09-26 21:55 | disposition short-term general hospital (02) ==
LOC: ER 18:37
DX: K65.2 Spontaneous bacterial peritonitis (principal); D72.829 Elevated white blood cell count, unspecified; R94.31 Abnormal electrocardiogram [ECG] [EKG]; I12.0 Hypertensive chronic kidney disease with stage 5 chronic kidney disease or end stage renal disease; N18.6 End stage renal disease; Z90.49 Acquired absence of other specified parts of digestive tract; Z99.2 Dependence on renal dialysis
CPT/HCPCS: 80048; 80076; 83690; 85025; 87040; 87070; 87205; 93005; J1170; J1580; J2405; J3370; J7050